=== PATIENT | female | born 1930 | race Caucasian/White ===

== ENCOUNTER 2018-08-18 15:46 | Inpatient (IN) | payer MEDICARE, OTHER ==
[~2018-08-18] VITALS: Ht 154.9 cm; Wt 57.3 kg
[2018-08-18] MEDS ORDERED: ASPIRIN 325 MG TAB PO STA (15:53)
[2018-08-18] MEDS ORDERED: ACET325T45 PO (16:51)
[2018-08-18] MEDS ORDERED: INSU100I12 SQ (16:54)
[2018-08-18] MEDS ORDERED: ALBU2.5V3 NEB (16:55)
[2018-08-18] MEDS ORDERED: ASPI-817 PO (16:56)
[2018-08-18] MEDS ORDERED: ASC500 PO (16:56)
[2018-08-18] MEDS ORDERED: [UNRECOGNIZED DRUG - CODE] PO (16:58)
[2018-08-18] MEDS ORDERED: FLUT1AER INHALATION (16:59)
[2018-08-18] MEDS ORDERED: DOCU-144 PO (16:59)
[2018-08-18] MEDS ORDERED: CARV6.25 PO (17:00)
[2018-08-18] MEDS ORDERED: BISA10SU55 RC (17:01)
[2018-08-18] MEDS ORDERED: NA P133E39 RC (17:02)
[2018-08-18] MEDS ORDERED: MELA3TAB17 PO (17:03)
[2018-08-18] MEDS ORDERED: LANT3I SC (17:03)
[2018-08-18] MEDS ORDERED: MAGN400O19 PO (17:04)
[2018-08-18] MEDS ORDERED: MULT-105 PO (17:05)
[2018-08-18] MEDS ORDERED: PANT40TA4 PO (17:05)
[2018-08-18] MEDS ORDERED: SENN-120 PO (17:06)
[2018-08-18] MEDS ORDERED: AMIN30LI PO (17:06)
[2018-08-18] MEDS ORDERED: ARIP10TA12 PO (17:07)
[2018-08-18] MEDS ORDERED: ZINC220T PO (17:07)
[2018-08-18] MEDS ORDERED: LORA-441 PO (17:08)
[2018-08-18] MEDS ORDERED: SIMV10TA PO (17:09)
[2018-08-18] MEDS ORDERED: MIRT30TA PO (17:09)
[2018-08-18] MEDS ORDERED: MAGN400T28 PO (17:10)
[2018-08-18] MEDS ORDERED: CALC1TAB93 PO (17:10)
[2018-08-18] MEDS ORDERED: CHOL100062 PO (17:11)
[2018-08-18] MEDS ORDERED: VANCOMYCIN 1 GM (PMX) 250 ML IVPB STA (17:29)
[2018-08-18] MEDS ORDERED: CEFEPIME 1GM/50 ML (PMX) 50 ML IVPB STA (17:29)
--- NOTE | 2018-08-18 17:46 | HP ---
Date/Time of Note Date/Time of Note DATE: 08/18/18 TIME: 17:46 Assessment/Plan VTE Prophylaxis SCD applied (from Nsg): Yes Pharmacological prophylaxis: LMWH Lines/Catheters IV Catheter Type (from Nrsg): Saline Lock Assessment/Plan Assessment/Plan 1. Large left sided pleural effusion - seen on CXR - will order thoracentesis with fluid studies - will consult Pulmonology for further recommendations - patient has thora performed at [facility] on 08/11/18 with 600cc removed - may be secondary to CHF and patient does not appear to be on any diuretics as outpatient 2. Acute on chronic congestive heart failure - ECHO ordered to assess EF - will start on Lasix IV BID and adjust as needed - BNP noted - monitor I/O and daily weights 3. Acute chest pain - most likely secondary to #1 - will trend trops - nitro and O2 PRN - ECHO ordered - EKG negative for acute ST changes 4. ? Infiltrate on CXR - will start broad spectrum antibiotics and reassess after fluid removal - Nebs PRN 5. Diabetes Mellitus - continue Lantus and ISS - check A1c 6. Alzheimers dementia - continue home medications 7. Left forehead mass - follow as outpatient 8. COPD - continue home bronchodilators - PRN nebs 9. HTN - continue home medications and adjust as needed 10. Schizophrenia - continue home medications 11. Diet - mechanical soft 12. Disposition - Admit to telemetry for treatment of acute on chronic CHF and thoracentesis for L pleural effusion Result Diagram: 08/18/18 1602 08/18/18 1602 Results 24hrs Laboratory Tests Test 08/18/18 16:02 White Blood Count 12.5 H Red Blood Count 3.85 L Hemoglobin 11.5 L Hematocrit 34.9 L Mean Corpuscular Volume 90.6 Mean Corpuscular Hemoglobin 29.9 Mean Corpuscular Hemoglobin Concent 33.0 Red Cell Distribution Width 13.6 Platelet Count 303 Mean Platelet Volume 10.0 Immature Granulocytes % 0.500 H Neutrophils % 78.5 H Lymphocytes % 11.7 L Monocytes % 8.5 Eosinophils % 0.6 Basophils % 0.2 Nucleated Red Blood Cells % 0.0 Immature Granulocytes # 0.060 H Neutrophils # 9.8 H Lymphocytes # 1.5 Monocytes # 1.1 H Eosinophils # 0.1 Basophils # 0.0 Nucleated Red Blood Cells # 0.0 Prothrombin Time 13.8 Prothrombin Time Ratio 1.1 INR International Normalized Ratio 1.05 Activated Partial Thromboplast Time 30.4 Sodium Level 141 Potassium Level 4.2 Chloride Level 102 Carbon Dioxide Level 31 Anion Gap 8 Blood Urea Nitrogen 17 Creatinine 0.67 Est Glomerular Filtrat Rate mL/min Glucose Level 214 Calcium Level 9.2 Total Bilirubin 0.4 Direct Bilirubin 0.00 Indirect Bilirubin 0.4 Aspartate Amino Transf (AST/SGOT) 15 Alanine Aminotransferase (ALT/SGPT) 7 L Alkaline Phosphatase 54 Creatine Kinase 28 Creatine Kinase Index 3.2 Creatinine Kinase MB (Mass) 0.90 Troponin I 0.024 B-Type Natriuretic Peptide 976 H Total Protein 7.2 Albumin 3.4 Globulin 3.80 H Albumin/Globulin Ratio 0.89 HPI/ROS Admit Date/Time Admit Date/Time 08/18/18 Hx of Present Illness 88 yo F with PMH pleural effusion, congestive heart failure, HTN, Alzheimers dementia, COPD, Depression, diabetes mellitus, and left forehead mass presented to ED from SNF for acute chest pain after awaking from nap today and shortness of breath. Patient is [place]i speaking but not communicating well. History obtained from ED physician as well as recent records from [facility] admission. In ED, patient was noted with large right pleural effusion on CXR and placed on O2 due to hypoxia. Per records, patient is known to [facility] and was recently admitting 08/11/18 for generalized weakness and found with large right sided pleural effusion. She had a thoracentesis performed with 600cc removed and fluid studies were negative for malignancy. She was discharged back to SNF in good condition. Patient is unable to verbalize needs at this time. ROS All 12 systems reviewed and pertinent positives as per HPI. All others negative. Unable to obtain ROS due to dementia Subjective hx not possible: other (dementia) PMH/Family/Social Past Medical History Medical History: congestive heart failure, diabetes, high cholesterol, hypertension, other (COPD, schizophrenia, depression, dementia, left forehead mass) Medications Current Medications Cefepime HCl 50 ml @ 100 mls/hr ONCE STAT IVPB Last administered on 08/18/18at 17:42; Admin Dose 100 MLS/HR; Start 08/18/18 at 17:29; Stop 08/18/18 at 17:58 Vancomycin HCl 250 ml @ 125 mls/hr ONCE STAT IVPB ; Start 08/18/18 at 17:29; Stop 08/18/18 at 19:28 Acetaminophen (Tylenol Tab) 650 mg Q6H PRN PO MILD PAIN LEVEL 1-3; Start 08/18/18 at 18:00; Status UNV Aripiprazole (Abilify) 10 mg QHS PO ; Start 08/18/18 at 21:00; Status UNV Ascorbic Acid (Vitamin C) 500 mg BID PO ; Start 08/18/18 at 21:00; Status UNV Aspirin (Halfprin) 81 mg DAILY PO ; Start 08/19/18 at 09:00; Status UNV Calcium/Vitamin D (Oyster Shell/ Vit-D (500/200)) 1 tab DAILY PO ; Start 08/19/18 at 09:00; Status UNV Carvedilol (Coreg) 6.25 mg BID PO ; Start 08/18/18 at 21:00; Status UNV Cholecalciferol (Vitamin D) 1,000 unit BID PO ; Start 08/18/18 at 21:00; Status UNV Fluticasone/ Vilanterol (Breo Ellipta 100-25 Mcg Inh) 1 inh DAILY INH ; Start 08/19/18 at 09:00; Status UNV Insulin Glargine (Lantus) 10 units QHS PRN SC HOLD IF BS<100MG/DL; Start 08/18/18 at 18:00; Status UNV Magnesium Hydroxide (Milk Of Mag) 30 ml DAILY PRN PO constipation; Start 08/18/18 at 18:00; Status UNV Mirtazapine (Remeron) 30 mg HS PO ; Start 08/18/18 at 21:00; Status UNV Pantoprazole (Protonix Tab) 40 mg AC BREAKFAST PO ; Start 08/19/18 at 07:00; Status UNV Zinc Sulfate (Zinc Sulfate) 220 mg DAILY PO ; Start 08/19/18 at 09:00; Status UNV Miscellaneous Information 1 each DAILY PO ; Start 08/19/18 at 09:00; Status UNV Miscellaneous Information 10 mg QHS PO ; Start 08/18/18 at 21:00; Status UNV IV Flush (NS 3 ml) 3 ml PER PROTOCOL IV ; Start 08/18/18 at 18:00; Status UNV Ondansetron HCl (Zofran Inj) 4 mg Q6H PRN IV NAUSEA/VOMITING; Start 08/18/18 at 18:00; Status UNV Acetaminophen (Tylenol Tab) 650 mg Q6H PRN PO .PAIN 1-3 OR TEMP; Start 08/18/18 at 18:00; Status UNV Docusate Sodium (Colace) 100 mg Q12H PRN PO .CONSTIPATION; Start 08/18/18 at 18:00; Status UNV Bisacodyl (Dulcolax) 5 mg DAILY PRN PO .CONSTIPATION; Start 08/18/18 at 18:00; Status UNV Cefepime HCl 50 ml @ 100 mls/hr Q8 IV ; Start 08/18/18 at 22:00; Status UNV Furosemide (Lasix) 20 mg BID DIURETICS IV ; Start 08/18/18 at 18:00; Status UNV Coded Allergies: levofloxacin (Verified Allergy, Unknown, 08/18/18) Past Surgical History Past Surgical Hx: noncontributory Family History Significant Family History: other (noncontributory) Social History Alcohol Use: none Smoking Status: Former smoker Drug Use: none Exam/Review of Systems Vital Signs Vitals Vital Signs Date Temp Pulse Resp B/P (MAP) Pulse Ox O2 O2 Flow FiO2 Time Delivery Rate 08/18/18 99.8 71 14 123/65 93 Nasal 2.0 17:11 (84) Cannula Exam Exam General: Patient is laying in bed, no acute distress. HEENT: Normocephalic, large left sided mass on forehead with no discharge or drainage. The pupils are equal, round and reactive. EOM intact, Neck: Supple with full range of motion. No rigidity or meningismus Chest: nontender Lungs: Left sided breath sounds absent. Diminished on right. no wheezing appreciated Heart: Normal S1-S2, Regular rhythm and rate. systolic murmur appreciated Abdomen: Soft , nontender, nondistended , bowel sounds are present. No guarding no rebound tenderness , No masses or organomegaly. No costovertebral temporal angle mass Extremities: Normal to inspection, trace lower extremity edema, no cyanosis or clubbing Skin: no rashes appreciated. large left sided mass on forehead Additional Comments Home medications reviewed PROCEDURE: XR Chest, 1 View CLINICAL INDICATION: Chest pain. TECHNIQUE: Frontal view of the chest. COMPARISON: None FINDINGS: LUNGS: Nonspecific increased density in the remaining aerated portion of the upper left lung. This may be secondary to atelectasis versus infiltrate. The right lung is clear. PLEURAL SPACE: Large left pleural effusion. No pneumothorax. HEART: Mild cardiomegaly. MEDIASTINUM: Unremarkable. BONES/JOINTS: Mild degenerative thoracic spine changes. VASCULATURE: Atherosclerotic calcifications in the thoracic aorta. IMPRESSION: 1. Large left pleural effusion. 2. Nonspecific increased density in the remaining aerated portion of the upper left lung. This may be secondary to atelectasis versus infiltrate. 3. The right lung is clear. RPTAT: [facility] Sofy Lewis Physician Vice President Education Date Time Electronically viewed and signed by Sofy Lewis Physician Vice President Education on 08/18/2018 16:45 YADIRA COLLINS MD Aug 18, 2018 17:46
[2018-08-18] MEDS ORDERED: GLUCOSE GEL 15 GRAM TUBE BUCCAL PRN (18:00)
[2018-08-18] MEDS ORDERED: NACL 0.9% 3 ML SYG IV SCH (18:00)
[2018-08-18] MEDS ORDERED: DOCUSATE SODIUM 100 MG CAP PO PRN (18:00)
[2018-08-18] MEDS: INSULIN ASPART [NOVOLOG] 3 ML PEN SC SCH ×2 (18:00→21:00)
[2018-08-18] MEDS ORDERED: ONDANSETRON 4 MG INJ IV PRN ×2 (18:00→18:30)
[2018-08-18] MEDS ORDERED: GLUCOSE GEL 15 GRAM TUBE PO PRN ×2 (18:00)
[2018-08-18] MEDS ORDERED: ACETAMINOPHEN 325 MG TAB PO PRN ×3 (18:00→18:30)
[2018-08-18] MEDS ORDERED: BISACODYL (EC) 5 MG TAB PO PRN (18:00)
[2018-08-18] MEDS ORDERED: DEXTROSE 50% 50 ML SYRINGE IV PRN ×2 (18:00)
[2018-08-18] MEDS ORDERED: GLUCAGON 1 MG INJ IM PRN (18:00)
[2018-08-18] MEDS ORDERED: MAGNESIUM HYDROXIDE 30ML CUP PO PRN (18:00)
[2018-08-18] MEDS: FUROSEMIDE 20 MG INJ IV SCH (18:14)
--- NOTE | 2018-08-18 18:44 | ERD ---
ER Documentation Chief Complaint Chief Complaint CHEST PRESSURE X TODAY HPI Is an 88-year-old female with a history of congestive heart failure diabetes mellitus and dementia. The patient presented to the emergency department from h nursing care facility at [facility]. Patient was transferred by ambulance as she awoke from a nap complaining of chest pressure. The patient stated the pain was on the left side of her chest. She stated did not radiate anywhere. Her primary language is Burkinan. EMS administered nitroglycerin with no changes in her symptoms. There is been no recent hospitalizations. When rev iewing previous medical records the patient has not been in [facility] however she presented with papers from [facility] where she had been admitted on August 06, 2018. The patient had a large left pleural effusion and had a thoracentesis that was performed. The dementia is due to Alzheimer's. There is a report of schizophrenia and underlying COPD she had extensive tobacco history. ROS All systems reviewed and are negative except as per history of present illness. Medications Home Meds Reported Medications Cholecalciferol* (Vitamin D3*) 1,000 Unit Tablet, 1000 UNIT PO BID, TAB 08/18/18 Calcium Carbonate/Vitamin D3 (OYSTER SHELL 500 MG + VIT D TB) 1 Each Tablet, 1 EACH PO DAILY, TAB 08/18/18 Magnesium Oxide* (Magnesium Oxide*) 400 Mg Tablet, 400 MG PO BID, TAB 08/18/18 Simvastatin* (Zocor*) 10 Mg Tablet, 10 MG PO QHS, #30 TAB 08/18/18 Mirtazapine* (Remeron*) 30 Mg Tablet, 30 MG PO HS, TAB 08/18/18 Lorazepam* (Ativan*) 0.5 Mg Tablet, 0.5 MG PO BID PRN for ANXIETY, #30 TAB 08/18/18 Aripiprazole* (Abilify*) 10 Mg Tablet, 10 MG PO QHS, #30 TAB 08/18/18 Zinc Sulfate* (Zinc Sulfate*) 220 Mg Tablet, 220 MG PO DAILY, TAB 08/18/18 Sennosides* (Senna Lax*) 8.6 Mg Tablet, 1 TAB PO DAILY, TAB 08/18/18 Amino Acids/Protein Hydrolys (PRO-STAT LIQUID) 30 Ml Liquid.pkt, 30 ML PO TID SUGAR FREE 08/18/18 Pantoprazole* (Pantoprazole*) 40 Mg Tablet.dr, 40 MG PO AC BREAKFAST, TAB 08/18/18 Multivitamin with Minerals (Multivitamins with Minerals) 1 Each Tablet, 1 EACH PO DAILY, TAB 08/18/18 Magnesium Hydroxide* (Milk Of Magnesia*) 400 Mg/5 Ml Oral.susp, 30 ML PO NEEDED, ML 08/18/18 Melatonin (Melatonin) 3 Mg Tablet.sa, 3 MG PO HS, TAB.SA 08/18/18 Insulin Glargine* (Lantus*) 100 Unit/Ml Soln, 10 UNIT SC QHS PRN for HOLD IF BS<100MG/DL, #1 VIAL 08/18/18 Sodium Phosphate,Kleberg-Dibasic (Enema Ready To Use) Unknown Strength Enema, 118 ML RC NEEDED, ENEMA 08/18/18 Bisacodyl (Dulcolax) 10 Mg Supp.rect, 10 MG RC NEEDED, SUPP.RECT 08/18/18 Carvedilol* (Coreg*) 6.25 Mg Tablet, 6.25 MG PO BID, #60 TAB HOLD FOR SBP<110 OR TX<60 08/18/18 Docusate Sodium* (Colace*) 100 Mg Capsule, 100 MG PO BID, #60 CAP 08/18/18 Fluticasone-Vilanterol (Breo Ellipta Inhaler) 100-25 Mcg/Actuation Aer.pow.ba, 1 PUFF INHALATION DAILY, #1 INHALER 08/18/18 Nut.tx.gluc Intol,Lf,Soy/Fiber (Boost Glucose Control Liquid) 237 Ml Liquid, PO QID 08/18/18 Aspirin* (Aspirin* EC) 81 Mg Tablet.dr, 81 MG PO DAILY, TAB 08/18/18 Ascorbic Acid (Vitamin C) 500 Mg Tab, 500 MG PO BID, TAB 08/18/18 Albuterol Sulfate* (Albuterol Sulfate* Neb) 0.083%-3 Ml Neb, 2.5 MG NEB Q6H PRN for WHEEZING AND SOB, #30 VIAL 08/18/18 Insulin Lispro (Humalog Kwikpen U-100) 100 Unit/1 Ml Insuln.pen, 0 SQ SLIDING SCALE, EA IF BS LESS THAN 70 CALL MD. IF BS 70-150=0 UNIT, 151-200=2 UNITS,201-250=4 UNITS, 251-300=6 UNITS, 301-350=8 UNITS,351-400=10 UNITS, IF BS>400=12 UNITS AND CALL MD. 08/18/18 Acetaminophen* (Acetaminophen*) 325 Mg Tablet, 650 MG PO Q6H PRN for MILD PAIN LEVEL 1-3, #30 TAB 08/18/18 Allergies Allergies: Coded Allergies: levofloxacin (Verified Allergy, Unknown, 08/18/18) PMhx/Soc History of Surgery: No Anesthesia Reaction: No Hx Neurological Disorder: Yes (DEMENTIA) Hx Respiratory Disorders: No Hx Psychiatric Problems: No Hx Miscellaneous Medical Probl: No Hx Alcohol Use: No Hx Substance Use: No Hx Tobacco Use: No Smoking Status: Former smoker Physical Exam Vitals Vital Signs Date Temp Pulse Resp B/P (MAP) Pulse Ox O2 O2 Flow FiO2 Time Delivery Rate 08/18/18 99.8 67 14 127/61 93 Nasal 2.0 18:08 (83) Cannula 08/18/18 99.8 71 14 123/65 93 Nasal 2.0 17:11 (84) Cannula 08/18/18 99.8 90 20 133/66 93 Nasal 2.0 15:58 (88) Cannula 08/18/18 Nasal 2 15:58 Cannula 08/18/18 99.8 88 20 133/66 93 15:49 (88) Physical Exam Constitutional:Well-developed. HEENT:Normocephalic. Atraumatic.Pupils were equal round reactive to light. Moist mucous membranes.No tonsillar exudates. Nodule growth on the left forehead measuring 2 cm in diameter by 2 cm raised. No surrounding tenderness. Neck: No nuchal rigidity. No lymphadenopathy. No posterior cervical spine tenderness or step-offs. Respiratory: Tachypneic. Decreased breath sounds heard in the left hemothorax. Cardiovascular: Regular rate regular rhythm.No murmurs. No rubs were appreciated.S1, S2 normal. Distal pulses are palpable 2+ bilaterally. GI: Abdomen was soft. Nontender. Non Distended. No pulsatile abdominal masses or bruits. No rebound. No guarding. Bowel sounds were present and normal. Muscle skeletal: Full range of motion of both the upper and lower extremities bilaterally.Normal muscle tone.No assymetrical calf tenderness or swelling. Skin: No petechia, no purpura. No lesions on the palms or the soles of the feet. No maculopapular rash. NEURO: Patient follows simple verbal command. 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 Gait not observed. Result Diagram: 08/18/18 1602 08/18/18 1602 Results 24 hrs Laboratory Tests Test 08/18/18 16:02 White Blood Count 12.5 10^3/ul Red Blood Count 3.85 10^6/ul Hemoglobin 11.5 g/dl Hematocrit 34.9 % Mean Corpuscular Volume 90.6 fl Mean Corpuscular Hemoglobin 29.9 pg Mean Corpuscular Hemoglobin Concent 33.0 g/dl Red Cell Distribution Width 13.6 % Platelet Count 303 10^3/UL Mean Platelet Volume 10.0 fl Immature Granulocytes % 0.500 % Neutrophils % 78.5 % Lymphocytes % 11.7 % Monocytes % 8.5 % Eosinophils % 0.6 % Basophils % 0.2 % Nucleated Red Blood Cells % 0.0 /100WBC Immature Granulocytes # 0.060 10^3/ul Neutrophils # 9.8 10^3/ul Lymphocytes # 1.5 10^3/ul Monocytes # 1.1 10^3/ul Eosinophils # 0.1 10^3/ul Basophils # 0.0 10^3/ul Nucleated Red Blood Cells # 0.0 10^3/ul Prothrombin Time 13.8 Sec Prothrombin Time Ratio 1.1 INR International Normalized Ratio 1.05 Activated Partial Thromboplast Time 30.4 Sec Sodium Level 141 mmol/L Potassium Level 4.2 mmol/L Chloride Level 102 mmol/L Carbon Dioxide Level 31 mmol/L Anion Gap 8 Blood Urea Nitrogen 17 mg/dl Creatinine 0.67 mg/dl Est Glomerular Filtrat Rate mL/min mL/min Glucose Level 214 mg/dl Hemoglobin A1c 7.4 % Calcium Level 9.2 mg/dl Total Bilirubin 0.4 mg/dl Direct Bilirubin 0.00 mg/dl Indirect Bilirubin 0.4 mg/dl Aspartate Amino Transf (AST/SGOT) 15 IU/L Alanine Aminotransferase (ALT/SGPT) 7 IU/L Alkaline Phosphatase 54 IU/L Creatine Kinase 28 IU/L Creatine Kinase Index 3.2 Creatinine Kinase MB (Mass) 0.90 ng/ml Troponin I 0.024 ng/ml B-Type Natriuretic Peptide 976 PG/ML Total Protein 7.2 g/dl Albumin 3.4 g/dl Globulin 3.80 g/dl Albumin/Globulin Ratio 0.89 Current Medications Medications Dose Sig/Poppy Start Time Status Last (Trade) Ordered Route PRN Stop Time Admin Dose Reason Admin Aspirin 325 mg ONCE STAT 08/18/18 DC 08/18/18 (Aspirin) PO 15:53 16:10 08/18/18 15:55 Cefepime HCl 50 ml @ ONCE STAT 08/18/18 DC 08/18/18 100 mls/hr IVPB 17:29 17:42 08/18/18 17:58 Vancomycin 250 ml @ ONCE STAT 08/18/18 08/18/18 HCl 125 mls/hr IVPB 17:29 18:12 08/18/18 19:28 650 mg Q6H PRN 08/18/18 DC Acetaminophen PO MILD PAIN 18:00 (Tylenol LEVEL 1-3 08/18/18 18:00 Tab) 10 mg QHS PO 08/18/18 Aripiprazole 21:00 (Abilify) Ascorbic 500 mg BID PO 08/18/18 Acid 21:00 (Vitamin C) Aspirin 81 mg DAILY PO 08/19/18 (Halfprin) 09:00 1 tab DAILY PO 08/19/18 Calcium/Vitam 09:00 in D (Oyster Shell/ Vit-D (500/200)) Carvedilol 6.25 mg BID PO 08/18/18 (Coreg) 21:00 1,000 unit BID PO 08/18/18 Cholecalcifer 21:00 ol (Vitamin D) 1 inh DAILY INH 08/19/18 Fluticasone/ 09:00 Vilanterol (Breo Ellipta 100-25 Mcg Inh) Insulin 10 units QHS SC 08/18/18 Glargine 21:00 (Lantus) Magnesium 30 ml DAILY PRN 08/18/18 Hydroxide PO 18:00 (Milk Of Mag) constipation Mirtazapine 30 mg HS PO 08/18/18 (Remeron) 21:00 40 mg AC 08/19/18 Pantoprazole BREAKFAST 07:00 (Protonix PO Tab) Zinc 220 mg DAILY PO 08/19/18 Sulfate 09:00 (Zinc Sulfate) 1 each DAILY PO 08/19/18 DC Miscellaneous 09:00 Information 08/19/18 09:00 10 mg QHS PO 08/18/18 DC Miscellaneous 21:00 Information 08/18/18 21:00 IV Flush 3 ml PER 08/18/18 (NS 3 ml) PROTOCOL IV 18:00 Ondansetron 4 mg Q6H PRN 08/18/18 HCl (Zofran IV 18:00 Inj) NAUSEA/VOMITI NG 650 mg Q6H PRN 08/18/18 Acetaminophen PO .PAIN 1-3 18:00 (Tylenol OR TEMP Tab) Docusate 100 mg Q12H PRN 08/18/18 Sodium PO 18:00 (Colace) .CONSTIPATION Bisacodyl 5 mg DAILY PRN 08/18/18 (Dulcolax) PO 18:00 .CONSTIPATION Cefepime HCl 50 ml @ Q24H IV 08/19/18 100 mls/hr 12:00 Furosemide 20 mg BID 08/18/18 08/18/18 (Lasix) DIURETICS 18:00 18:14 IV 1 ea NOTE XX 08/18/18 Miscellaneous 18:00 Information Glucose 15 gm Q15M PRN 08/18/18 (Glutose) PO DECREASED 18:00 GLUCOSE Glucose 22.5 gm Q15M PRN 08/18/18 (Glutose) PO DECREASED 18:00 GLUCOSE Dextrose 25 ml Q15M PRN 08/18/18 (D50w IV DECREASED 18:00 Syringe) GLUCOSE Dextrose 50 ml Q15M PRN 08/18/18 (D50w IV DECREASED 18:00 Syringe) GLUCOSE Glucagon 1 mg Q15M PRN 08/18/18 (Glucagen) IM DECREASED 18:00 GLUCOSE Glucose 15 gm Q15M PRN 08/18/18 (Glutose) BUCCAL 18:00 DECREASED GLUCOSE 1 tab DAILY PO 08/19/18 Multivitamins 09:00 Therapeutic (Theragran) 10 mg DAILY@21 08/18/18 Atorvastatin PO 21:00 Calcium (Lipitor) Discontinue ONCE ONCE 08/18/18 DC Miscellaneous current oral XX 18:00 sulfonylur... 08/18/18 18:10 Information (* Miscellaneous Pharmacy Order) ONCE ONCE 08/18/18 DC Miscellaneous HYPOGLYCEMIA XX 18:00 PROTOCOL 08/18/18 18:11 Information w... (* Miscellaneous Pharmacy Order) Insulin NOVOLOG WITH MEALS 08/18/18 Aspart *MILD* BEDTIME SC 18:00 (Novolog ALGORITHM Insulin Pen) Discontinue ONCE ONCE 08/18/18 DC Miscellaneous all previ... XX 18:00 08/18/18 18:10 Information (* Miscellaneous Pharmacy Order) Ondansetron 4 mg ER BRIDGE 08/18/18 HCl (Zofran PRN IV 18:30 Inj) NAUSEA/VOMITI 08/19/18 18:29 NG 650 mg ER BRIDGE 08/18/18 Acetaminophen PRN PO 18:30 (Tylenol .MILD PAIN 08/19/18 18:29 Tab) 1-3 OR TEMP Procedures/MDM The patient presented to the emergency department with chest pain. My clinical evaluation and workup was to distinguish minor causes of chest pain from acute life threatening conditions such as myocardial infarction, pulmonary embolism, aortic dissection, esophageal rupture, cardiac tamponade. The patient was placed on a monitoring manager and continuous pulse oximetry. IV access established by nursing staff. The patient received aspirin. 12 Lead EKG tracing ordered and reviewed by myself showed: Normal sinus rhythm of 82 bpm and no arrhythmia. TX interval normal. QRS duration normal. No ST segment elevation No ST segment depression. No changes consistent with acute ischemia. Patient's troponin was within normal limits. The patient is a very poor historian and I did not feel the pain was experiencing a myocardial infarction. The patient was hypoxic and therefore I obtained a chest radiograph. Chest radiograph reviewed by myself the radiologist showed a large left pleural effusion. The patient had a recent thoracentesis at [facility]. However given her symptoms of mild respiratory distress with hypoxia she will be admitted to the hospitalist Dr. Pizarro to undergo a repeat thoracentesis if required to treat her pleural effusion. She required supplemental oxygen of 4 L nasal cannula. I did obtain blood cultures as could not rule out an underlying infectious process. The patient did receive antibiotics to treat suspected healthcare acquired pneumonia. The patient also has underlying congestive heart failure. Lasix was not given as the patient reported on hypotension. Critical Care: Time: 35 minutes Treatments/Evaluations: Close monitoring and treatment of unstable vital signs, cardiorespiratory, and neurologic status, while maintaining tight balance of fluid, respiratory, and cardiac interventions. Time does not include performing any of the above billable procedures. Departure Diagnosis: Primary Impression: Chest pain Chest pain type: unspecified Qualified Codes: R07.9 - Chest pain, unspecified Additional Impression: Pleural effusion due to CHF (congestive heart failure) Condition: Fair CAROLINE,UDAY MD Aug 18, 2018 18:44
[2018-08-18] MEDS ORDERED: NON-FORMULARY/PATIENT OWN MED (Simvastatin* (Zocor*) 10 MG) PO SCH (21:00)
[2018-08-18 21:13] VITALS: BP 145/77; PULSE 67; RESP 21
[2018-08-18] MEDS: ATORVASTATIN 10 MG TAB PO SCH (21:52)
[2018-08-18] MEDS: ASCORBIC ACID 500 MG TAB PO SCH (21:52)
[2018-08-18] MEDS: CHOLECALCIFEROL 1,000 UNIT TAB PO SCH (21:52)
[2018-08-18] MEDS: MIRTAZAPINE 15 MG TAB PO SCH (21:52)
[2018-08-18 22:00] VITALS: Ht 154.9 cm; Wt 57.3 kg
[2018-08-18] MEDS: ARIPIPRAZOLE 10 MG TAB PO SCH (22:08)
[2018-08-18] MEDS: INSULIN GLARGINE [LANTus] (100 UNITS/ML) SYG SC SCH (23:09)
[2018-08-18 23:28] VITALS: BP 139/66; PULSE 71; RESP 18
[2018-08-19] VITALS (7 sets, daily range): BP systolic 104–182; BP diastolic 56–92; PULSE 63–71; RESP 15–21
[2018-08-19] MEDS: PANTOPRAZOLE (EC) 40 MG TAB PO SCH (06:07)
[2018-08-19] MEDS: FUROSEMIDE 20 MG INJ IV SCH ×2 (06:08→18:16)
[2018-08-19] MEDS: INSULIN ASPART [NOVOLOG] 3 ML PEN SC SCH ×4 (07:59→20:47)
[2018-08-19] MEDS ORDERED: hydrALAzine 20 MG INJ IV PRN (09:00)
[2018-08-19] MEDS: MULTIVITAMINS THERAPEUTIC TAB PO SCH (09:13)
[2018-08-19] MEDS: CHOLECALCIFEROL 1,000 UNIT TAB PO SCH ×2 (09:13→20:28)
[2018-08-19] MEDS: ASCORBIC ACID 500 MG TAB PO SCH ×2 (09:13→20:28)
[2018-08-19] MEDS: CALCIUM/VITAMIN D (500/200) TAB PO SCH (09:13)
[2018-08-19] MEDS: ASPIRIN (EC) 81 MG TAB PO SCH (09:13)
[2018-08-19] MEDS: ZINC SULFATE 220 MG CAP PO SCH (09:13)
[2018-08-19] MEDS: FLUTICASONE/VILANTEROL 100-25 INH SCH (09:13)
--- NOTE | 2018-08-19 09:59 | PN ---
Date/Time of Note Date/Time of Note DATE: 08/19/18 TIME: 09:55 Assessment/Plan VTE Prophylaxis Risk score (from Nsg)>0 risk: 6 SCD applied (from Nsg): Yes Pharmacological prophylaxis: LMWH Lines/Catheters IV Catheter Type (from Nrsg): Saline Lock Urinary Cath still in place: No Assessment/Plan Assessment/Plan 1. Large left sided pleural effusion - will need thoracentesis when able to reach family for consent - seen on CXR - Pulmonology consultation placed - patient has thora performed at [facility] on 08/11/18 with 600cc removed - may be secondary to CHF and patient does not appear to be on any diuretics as outpatient 2. Acute on chronic congestive heart failure - ECHO ordered to assess EF - will start on Lasix IV BID and adjust as needed - BNP noted - monitor I/O and daily weights 3. Acute chest pain - most likely secondary to #1 - serial trops negative - nitro and O2 PRN - EKG negative for acute ST changes 4. ? Infiltrate on CXR - will start broad spectrum antibiotics and reassess after fluid removal - Nebs PRN 5. Diabetes Mellitus - continue Lantus and ISS - A1c noted 6. Alzheimers dementia - continue home medications 7. Left forehead mass - follow as outpatient 8. COPD - continue home bronchodilators - PRN nebs 9. HTN - continue home medications and adjust as needed 10. Schizophrenia - continue home medications 11. Diet - mechanical soft 12. Disposition - Pulmonology consultation placed and awaiting thoracentesis. Result Diagram: 08/19/18 0523 08/19/18 0524 Results 24hrs Laboratory Tests Test 08/18/18 16:02 08/18/18 21:57 08/19/18 00:22 08/19/18 05:23 White Blood Count 12.5 H 10.6 Red Blood Count 3.85 L 3.75 L Hemoglobin 11.5 L 11.1 L Hematocrit 34.9 L 34.4 L Mean Corpuscular 90.6 91.7 Volume Mean Corpuscular 29.9 29.6 Hemoglobin Mean Corpuscular 33.0 32.3 Hemoglobin Concent Red Cell 13.6 13.8 Distribution Width Platelet Count 303 290 Mean Platelet Volume 10.0 10.3 Immature 0.500 H 0.400 Granulocytes % Neutrophils % 78.5 H 74.2 Lymphocytes % 11.7 L 15.8 Monocytes % 8.5 8.1 Eosinophils % 0.6 1.3 Basophils % 0.2 0.2 Nucleated Red Blood 0.0 0.0 Cells % Immature 0.060 H 0.040 H Granulocytes # Neutrophils # 9.8 H 7.9 H Lymphocytes # 1.5 1.7 Monocytes # 1.1 H 0.9 Eosinophils # 0.1 0.1 Basophils # 0.0 0.0 Nucleated Red Blood 0.0 0.0 Cells # Prothrombin Time 13.8 Prothrombin Time 1.1 Ratio INR International 1.05 Normalized Ratio Activated 30.4 Partial Thromboplast Time Sodium Level 141 Potassium Level 4.2 Chloride Level 102 Carbon Dioxide Level 31 Anion Gap 8 Blood Urea Nitrogen 17 Creatinine 0.67 Est Glomerular Filtrat Rate mL/min Glucose Level 214 Hemoglobin A1c 7.4 H Calcium Level 9.2 Total Bilirubin 0.4 Direct Bilirubin 0.00 Indirect Bilirubin 0.4 Aspartate Amino 15 Transf (AST/SGOT) Alanine 7 L Aminotransferase (AL T/SGPT) Alkaline Phosphatase 54 Creatine Kinase 28 28 23 Creatine Kinase 3.2 3.1 5.0 Index Creatinine Kinase MB 0.90 0.87 1.14 (Mass) Troponin I 0.024 0.032 0.031 B-Type Natriuretic 976 H Peptide Total Protein 7.2 Albumin 3.4 Globulin 3.80 H Albumin/Globulin 0.89 Ratio Bedside Glucose 159 Test 08/19/18 05:24 08/19/18 07:53 Sodium Level 141 Potassium Level 3.9 Chloride Level 102 Carbon Dioxide Level 33 H Anion Gap 6 Blood Urea Nitrogen 19 Creatinine 0.68 Est Glomerular Filtrat Rate mL/min Glucose Level 151 Calcium Level 9.3 Magnesium Level 1.7 Bedside Glucose 216 Subjective 24 Hr Interval Summary Free Text/Dictation Patient resting comfortably and in no acute distress. No acute overnight events. Exam/Review of Systems Exam Vitals Vital Signs Date Temp Pulse Resp B/P (MAP) Pulse Ox O2 O2 Flow FiO2 Time Delivery Rate 08/19/18 71 16 182/77 07:18 (112) 08/19/18 98.3 97 03:39 08/19/18 2.0 01:42 08/18/18 Nasal 22:00 Cannula Intake and Output 08/18/18 08/18/18 08/19/18 1515:00 23:00 07:00 IntakeIntake Total 50 ml BalanceBalance 50 ml Exam General: Patient is laying in bed, no acute distress. HEENT: Normocephalic, large left sided mass on forehead with no discharge or drainage Neck: Supple Chest: nontender Lungs: Left sided breath sounds absent. Diminished on right. no wheezing appreciated Heart: Normal S1-S2, Regular rhythm and rate. systolic murmur appreciated Abdomen: Soft , nontender, nondistended , bowel sounds are present. No guarding no rebound tenderness Extremities: Normal to inspection, trace lower extremity edema, no cyanosis or clubbing Skin: no rashes appreciated. large left sided mass on forehead Results Results 24hrs Laboratory Tests Test 08/18/18 16:02 08/18/18 21:57 08/19/18 00:22 08/19/18 05:23 White Blood Count 12.5 H 10.6 Red Blood Count 3.85 L 3.75 L Hemoglobin 11.5 L 11.1 L Hematocrit 34.9 L 34.4 L Mean Corpuscular 90.6 91.7 Volume Mean Corpuscular 29.9 29.6 Hemoglobin Mean Corpuscular 33.0 32.3 Hemoglobin Concent Red Cell 13.6 13.8 Distribution Width Platelet Count 303 290 Mean Platelet Volume 10.0 10.3 Immature 0.500 H 0.400 Granulocytes % Neutrophils % 78.5 H 74.2 Lymphocytes % 11.7 L 15.8 Monocytes % 8.5 8.1 Eosinophils % 0.6 1.3 Basophils % 0.2 0.2 Nucleated Red Blood 0.0 0.0 Cells % Immature 0.060 H 0.040 H Granulocytes # Neutrophils # 9.8 H 7.9 H Lymphocytes # 1.5 1.7 Monocytes # 1.1 H 0.9 Eosinophils # 0.1 0.1 Basophils # 0.0 0.0 Nucleated Red Blood 0.0 0.0 Cells # Prothrombin Time 13.8 Prothrombin Time 1.1 Ratio INR International 1.05 Normalized Ratio Activated 30.4 Partial Thromboplast Time Sodium Level 141 Potassium Level 4.2 Chloride Level 102 Carbon Dioxide Level 31 Anion Gap 8 Blood Urea Nitrogen 17 Creatinine 0.67 Est Glomerular Filtrat Rate mL/min Glucose Level 214 Hemoglobin A1c 7.4 H Calcium Level 9.2 Total Bilirubin 0.4 Direct Bilirubin 0.00 Indirect Bilirubin 0.4 Aspartate Amino 15 Transf (AST/SGOT) Alanine 7 L Aminotransferase (AL T/SGPT) Alkaline Phosphatase 54 Creatine Kinase 28 28 23 Creatine Kinase 3.2 3.1 5.0 Index Creatinine Kinase MB 0.90 0.87 1.14 (Mass) Troponin I 0.024 0.032 0.031 B-Type Natriuretic 976 H Peptide Total Protein 7.2 Albumin 3.4 Globulin 3.80 H Albumin/Globulin 0.89 Ratio Bedside Glucose 159 Test 08/19/18 05:24 08/19/18 07:53 Sodium Level 141 Potassium Level 3.9 Chloride Level 102 Carbon Dioxide Level 33 H Anion Gap 6 Blood Urea Nitrogen 19 Creatinine 0.68 Est Glomerular Filtrat Rate mL/min Glucose Level 151 Calcium Level 9.3 Magnesium Level 1.7 Bedside Glucose 216 Medications Medication Current Medications Aripiprazole (Abilify) 10 mg QHS PO Last administered on 08/18/18 22:08; Admin Dose 10 MG; Start 08/18/18 at 21:00 Ascorbic Acid (Vitamin C) 500 mg BID PO Last administered on 08/19/18 09:13; Admin Dose 500 MG; Start 08/18/18 at 21:00 Aspirin (Halfprin) 81 mg DAILY PO Last administered on 08/19/18 09:13; Admin Dose 81 MG; Start 08/19/18 at 09:00 Calcium/Vitamin D (Oyster Shell/ Vit-D (500/200)) 1 tab DAILY PO Last administ ered on 08/19/18 09:13; Admin Dose 1 TAB; Start 08/19/18 at 09:00 Carvedilol (Coreg) 6.25 mg BID PO Last administered on 08/19/18 09:14; Admin Dose 6.25 MG; Start 08/18/18 at 21:00 Cholecalciferol (Vitamin D) 1,000 unit BID PO Last administered on 08/19/18 09:13; Admin Dose 1,000 UNIT; Start 08/18/18 at 21:00 Fluticasone/ Vilanterol (Breo Ellipta 100-25 Mcg Inh) 1 inh DAILY INH Last administered on 08/19/18 09:13; Admin Dose 1 INH; Start 08/19/18 at 09:00 Insulin Glargine (Lantus) 10 units QHS SC Last administered on 7/11/19at 23:09; Admin Dose 10 UNITS; Start 08/18/18 at 21:00 Magnesium Hydroxide (Milk Of Mag) 30 ml DAILY PRN PO constipation; Start 08/18/18 at 18:00 Mirtazapine (Remeron) 30 mg HS PO Last administered on 08/18/18at 21:52; Admin Dose 30 MG; Start 08/18/18 at 21:00 Pantoprazole (Protonix Tab) 40 mg AC BREAKFAST PO Last administered on 08/19/18at 06:07; Admin Dose 40 MG; Start 08/19/18 at 07:00 Zinc Sulfate (Zinc Sulfate) 220 mg DAILY PO Last administered on 08/19/18at 09:13; Admin Dose 220 MG; Start 08/19/18 at 09:00 IV Flush (NS 3 ml) 3 ml PER PROTOCOL IV ; Start 08/18/18 at 18:00 Ondansetron HCl (Zofran Inj) 4 mg Q6H PRN IV NAUSEA/VOMITING; Start 08/18/18 at 18:00 Acetaminophen (Tylenol Tab) 650 mg Q6H PRN PO .PAIN 1-3 OR TEMP; Start 08/18/18 at 18:00 Docusate Sodium (Colace) 100 mg Q12H PRN PO .CONSTIPATION; Start 08/18/18 at 18:00 Bisacodyl (Dulcolax) 5 mg DAILY PRN PO .CONSTIPATION; Start 08/18/18 at 18:00 Cefepime HCl 50 ml @ 100 mls/hr Q24H IV ; Start 08/19/18 at 12:00 Furosemide (Lasix) 20 mg BID DIURETICS IV Last administered on 08/19/18at 06:08; Admin Dose 20 MG; Start 08/18/18 at 18:00 Miscellaneous Information 1 ea NOTE XX ; Start 08/18/18 at 18:00 Glucose (Glutose) 15 gm Q15M PRN PO DECREASED GLUCOSE; Start 08/18/18 at 18:00 Glucose (Glutose) 22.5 gm Q15M PRN PO DECREASED GLUCOSE; Start 08/18/18 at 18:00 Dextrose (D50w Syringe) 25 ml Q15M PRN IV DECREASED GLUCOSE; Start 08/18/18 at 18:00 Dextrose (D50w Syringe) 50 ml Q15M PRN IV DECREASED GLUCOSE; Start 08/18/18 at 18:00 Glucagon (Glucagen) 1 mg Q15M PRN IM DECREASED GLUCOSE; Start 08/18/18 at 18:00 Glucose (Glutose) 15 gm Q15M PRN BUCCAL DECREASED GLUCOSE; Start 08/18/18 at 18:00 Multivitamins Therapeutic (Theragran) 1 tab DAILY PO Last administered on at 09:13; Admin Dose 1 TAB; Start 08/19/18 at 09:00 Atorvastatin Calcium (Lipitor) 10 mg DAILY@21 PO Last administered on 08/18/18at 21:52; Admin Dose 10 MG; Start 08/18/18 at 21:00 Insulin Aspart (Novolog Insulin Pen) NOVOLOG *MILD* ALGORITHM WITH MEALS BEDTIME SC Last administered on 08/19/18at 07:59; Admin Dose 2 UNIT; Start 08/18/18 at 18:00 Ondansetron HCl (Zofran Inj) 4 mg ER BRIDGE PRN IV NAUSEA/VOMITING; Start 08/18/18 at 18:30; Stop 08/19/18 at 18:29 Acetaminophen (Tylenol Tab) 650 mg ER BRIDGE PRN PO .MILD PAIN 1-3 OR TEMP; Start 08/18/18 at 18:30; Stop 08/19/18 at 18:29 Magnesium Sulfate 50 ml @ 25 mls/hr ONCE ONCE IVPB ; Start 08/19/18 at 10:00; Stop 08/19/18 at 11:59 Hydralazine HCl (Apresoline) 10 mg Q4H PRN IV SBP >170; Start 08/19/18 at 09:00 YADIRA COLLINS MD Aug 19, 2018 09:59
[2018-08-19] MEDS ORDERED: MAGNESIUM SULFATE 2 GM/50 ML 50 ML IVPB ONE (10:00)
[2018-08-19] MEDS: CEFEPIME 2GM/50 ML (PMX) 50 ML IV SCH (12:32)
--- NOTE | 2018-08-19 14:59 | RADRPT ---
Echocardiogram Report Patient Name: Candy SCHULTEnt ID: [id number] : 1930 (88y 4m)Study Date: 08/19/2018 11:04:19 AM Gender: FAccession #: [id number] Tech: SN Location: [facility] Ref.Physician: YADIRA COLLINS Height(Cm): BSA: Weight(Kg): Quality: AdequateOrder Physician: YADIRA COLLINS Account #: Procedures: Echocardiographic Report: Transthoracic echocardiogram with complete 2D, M-Mode, and doppler examination. Indications: Evaluate Left Ventricular function, pleural effusion. Measurements: 2D/M Mode Doppler Measurement Value Normal Range Measurement Value Normal Range LVIDd 2D 3.0 [ 3.8 - 5.2 ] cm SONIYA VTI 0.8 [ 2.0 - 4.0 ] cm2 LVIDs 2D 2.2 [ 2.2 - 3.5 ] cm AV Mean Slim 2.3 [ 70.0 - 90.0 ] cm/sec LVPWd 2D 1.0 [ 0.6 - 0.9 ] cm AV Mean PG 25.0 [ 2.0 - 4.0 ] mmHg IVSd 2D 1.4 [ 0.6 - 0.9 ] cm AV VTI 78.0 cm AoR Diam 2D 2.3 [ 2.3 - 3.1 ] cm LVOT Mean Slim 0.6 [ 60.0 - 80.0 ] cm/sec EDV 2D 35.3 [ 46.0 - 106.0 ] ml LVOT Mean PG 2.0 [ 1.0 - 3.0 ] mmHg ESV 2D 16.0 [ 14.0 - 42.0 ] ml LVOT Peak Slim 1.0 [ 70.0 - 110.0 ] cm/sec EF 2D 54.7 [ 54.0 - 74.0 ] percent LVOT Peak PG 4.0 [ 2.0 - 6.0 ] mmHg LA Dimen 2D 2.7 [ 2.7 - 3.8 ] cm LVOT VTI 21.9 [ 20.0 - 30.0 ] cm LVOT Diam 1.9 [ 2.1 - 2.5 ] cm MV E Peak Slim 1.1 [ 60.0 - 130.0 ] cm/sec MV A Peak Slim 0.8 [ 100.0 - 120.0 ] cm/sec MV E/A 1.4 [ 0.8 - 1.5 ] ratio MV Peak Slim 1.3 [ 60.0 - 130.0 ] cm/sec MV Peak PG 7.0 [ 1.0 - 10.0 ] mmHg MV Mean Slim 0.8 cm/sec MV Mean PG 3.0 mmHg MV Decel Time 250 [ 104 - 258 ] msec Lat E` Slim 0.1 [ 10.0 - 15.0 ] cm/sec Lateral E/E` 16.4 [ 1.0 - 2.0 ] ratio MV E/A 1.4 [ 0.8 - 1.5 ] ratio MV VTI 35.1 cm MVA VTI 1.8 cm TR Peak Slim 3.6 [ 100.0 - 280.0 ] cm/sec TR Peak PG 51.0 mmHg RVSP 54.0 [ 10.0 - 36.0 ] mmHg Findings: Left Ventricle: Normal left ventricular systolic function. Normal left ventricular cavity size. Moderate asymmetric septal hypertrophy. Moderate left ventricular hypertrophy. Ejection fraction is visually estimated at 60 %. Tissue Doppler/Mitral Doppler indices are consistent with pseudonormalization with mildly elevated left atrial pressure (Stage II diastolic dysfunction). Right Ventricle: Normal right ventricular size. Normal right ventricular systolic function. Left Atrium: The left atrium is normal in size. Right Atrium: The right atrium is normal in size. Mitral Valve: Mild mitral leaflet calcification. Moderate mitral annular calcification. Mild mitral valve regurgitation. Aortic Valve: Moderate aortic stenosis. Aortic cusps appear severely calcified. Trace aortic valve regurgitation. Tricuspid Valve: Normal appearance of the tricuspid valve. The estimated Peak RVSP is 54 mmHg. There is mild tricuspid regurgitation. Pericardium: Small pericardial effusion. No echocardiographic evidence to suggest pericardial tamponade. Left pleural effusion seen. Aorta: Normal aortic root. IVC: Normal size and normal respiratory collapse consistent with normal right atrial pressure. Conclusions: Normal left ventricular systolic function. Normal left ventricular cavity size. Moderate asymmetric septal hypertrophy. Moderate left ventricular hypertrophy. Ejection fraction is visually estimated at 60 %. Tissue Doppler/Mitral Doppler indices are consistent with pseudonormalization with mildly elevated left atrial pressure (Stage II diastolic dysfunction). Normal right ventricular size. Normal right ventricular systolic function. The left atrium is normal in size. The right atrium is normal in size. Mild mitral valve regurgitation. Moderate aortic stenosis. Trace aortic valve regurgitation. The estimated Peak RVSP is 54 mmHg. There is mild tricuspid regurgitation. Pericardial effusion, likely small in size, difficult to fully confirm secondary to large left peural effusion. No echocardiographic evidence to suggest pericardial tamponade. Further imaging if clicinally warranted. Electronically Signed By: Ky Carson 2018-08-19 14:59:09 PDT
[2018-08-19] MEDS ORDERED: LIDOCAINE 1% (MPF) 5 ML VIAL ONE (15:01)
[2018-08-19] MEDS: MIRTAZAPINE 15 MG TAB PO SCH (20:28)
[2018-08-19] MEDS: ATORVASTATIN 10 MG TAB PO SCH (20:28)
[2018-08-19] MEDS: ARIPIPRAZOLE 10 MG TAB PO SCH (20:28)
[2018-08-19] MEDS: INSULIN GLARGINE [LANTus] (100 UNITS/ML) SYG SC SCH (20:47)
[2018-08-19] MEDS ORDERED: ACCU-CHEK XX ONE (21:00)
[2018-08-19] MEDS ORDERED: INSULIN ASPART [NOVOLOG] 3 ML PEN SC ONE (21:00)
--- NOTE | 2018-08-19 21:23 | CONS ---
DATE OF ADMISSION: 08/18/2018 DATE OF CONSULTATION: 08/19/2018 TYPE OF CONSULTATION: Pulmonary. REASON FOR CONSULTATION: Shortness of breath. Thank you, Dr. Pizarro, for this consultation. HISTORY OF PRESENT ILLNESS: This is an 88-year-old lady with multiple medical problems, who comes in with several-day history of increasing shortness of breath, orthopnea, PND, found to have large left pleural effusion, recently underwent thoracentesis at [facility]. The patient is mostly curren tly nonverbal, unable to give me further details. PAST MEDICAL HISTORY: Alzheimer's dementia, COPD, recurrent pleural effusion. MEDICATIONS: Per chart. ALLERGIES: NONE. SOCIAL HISTORY: Nonsmoker, no alcohol, no history of drug use. FAMILY HISTORY: Noncontributory. SYSTEMS REVIEW: A 12-point review of systems was negative other than mentioned above. PHYSICAL EXAMINATION: GENERAL: Chronically ill-appearing lady, appears comfortable at rest, no acute distress. VITAL SIGNS: Currently afebrile, pulse is 63, blood pressure 152/65, O2 saturation 92% on 2 liters. NECK: Supple. No JVD or lymphadenopathy. CARDIAC: S1, S2, no added sounds or murmurs. CHEST: Diminished air entry bilaterally. ABDOMEN: Soft, nontender. No guarding or rebound. LABORATORY: White count 10.6, hemoglobin 11, platelets of 290, BUN 19, creatinine 0.68. INR is 1.05 . DIAGNOSTIC DATA: Chest x-ray showed moderate left pleural effusion and compressive atelectasis. IMPRESSION AND PLAN: 1. Recurrent left pleural effusion, possible aspiration component. Will require repeat thoracentesi s. 2. Patient may benefit from a respiratory care Herrera post-thoracentesis, also. Dictated By: ALOK GONZALES MD SV/NTS Conf#: [id number] DID#: [id number] CC: YADIRA PIZARRO MD;*End*
[2018-08-20 03:35] VITALS: BP 137/63; PULSE 71; RESP 20
[2018-08-20] MEDS: FUROSEMIDE 20 MG INJ IV SCH ×2 (06:07→17:55)
[2018-08-20] MEDS: PANTOPRAZOLE (EC) 40 MG TAB PO SCH (06:07)
[2018-08-20 07:58] VITALS: BP 130/58; PULSE 63; RESP 18
[2018-08-20] MEDS: INSULIN ASPART [NOVOLOG] 3 ML PEN SC SCH ×4 (08:00→21:00)
[2018-08-20] MEDS: ASPIRIN (EC) 81 MG TAB PO SCH (08:36)
[2018-08-20] MEDS: FLUTICASONE/VILANTEROL 100-25 INH SCH (08:36)
[2018-08-20] MEDS: MULTIVITAMINS THERAPEUTIC TAB PO SCH (08:37)
[2018-08-20] MEDS: ASCORBIC ACID 500 MG TAB PO SCH ×2 (08:37→21:29)
[2018-08-20] MEDS: CHOLECALCIFEROL 1,000 UNIT TAB PO SCH ×2 (08:37→21:29)
[2018-08-20] MEDS: ZINC SULFATE 220 MG CAP PO SCH (08:37)
[2018-08-20] MEDS: CALCIUM/VITAMIN D (500/200) TAB PO SCH (08:37)
--- NOTE | 2018-08-20 11:20 | PN ---
Date/Time of Note Date/Time of Note DATE: 08/20/18 TIME: 11:10 Assessment/Plan VTE Prophylaxis Risk score (from Nsg)>0 risk: 4 SCD applied (from Nsg): Yes Pharmacological prophylaxis: LMWH Lines/Catheters IV Catheter Type (from Nrsg): Saline Lock Urinary Cath still in place: No Assessment/Plan Assessment/Plan 1. Large left sided pleural effusion s/p thoracentesis - 900 cc removed on 08/19 - low O2 this am and repeat CXR pending - Pulm on board and appreciate consultation. believes patient would benefit from Herrera given has had recurrent pleural effusions and may need another thoracentesis - seen on CXR - patient has thora performed at [facility] on 08/11/18 with 600cc removed 2. Acute on chronic congestive heart failure - ECHO results noted. small pericardial effusion but no tamponade appreciated - continue on current diuretics and monitor I/O - BNP noted 3. Acute chest pain - ACS ruled out - most likely secondary to #1 - serial trops negative - nitro and O2 PRN - EKG negative for acute ST changes 4. Diabetes Mellitus - continue Lantus and ISS - A1c noted 5. Alzheimers dementia - continue home medications 6. Left forehead mass - follow as outpatient 7. COPD - continue home bronchodilators - PRN nebs 8. HTN - continue home medications and adjust as needed 9. Schizophrenia - continue home medications 10. Disposition - Repeat CXR pending and CM consulted for Herrera evaluation - continue diuresis and monitoring I/O Result Diagram: 08/20/18 0537 08/20/18 0538 Results 24hrs Laboratory Tests Test 08/19/18 11:53 08/19/18 14:50 08/20/18 00:01 08/20/18 05:37 Bedside Glucose 67 L 139 Body Fluid Type PLEURAL Body Fluid Volume 900.0 Body Fluid Color YELLOW Body Fluid SLIGHTLY CLOUDY Appearance Body Fluid WBC 210 Body Fluid RBC 0 (Auto) Body Fluid 3.8 Polynuclear WBCs (%) Body Fluid 96.2 Mononuclear Cells % Auto Body Fluid Glucose 140 Body Fluid Total 5.0 Protein Body Fluid 332 Lactate Dehydrogen ase White Blood Count 11.2 H Red Blood Count 4.06 L Hemoglobin 12.1 Hematocrit 37.3 Mean Corpuscular 91.9 Volume Mean Corpuscular 29.8 Hemoglobin Mean Corpuscular 32.4 Hemoglobin Concent Red Cell 13.6 Distribution Width Platelet Count 322 Mean Platelet 10.2 Volume Immature 0.400 Granulocytes % Neutrophils % 69.8 Lymphocytes % 18.6 Monocytes % 8.9 Eosinophils % 2.0 Basophils % 0.3 Nucleated Red 0.0 Blood Cells % Immature 0.050 H Granulocytes # Neutrophils # 7.8 H Lymphocytes # 2.1 Monocytes # 1.0 H Eosinophils # 0.2 Basophils # 0.0 Nucleated Red 0.0 Blood Cells # Test 08/20/18 05:38 08/20/18 08:33 Sodium Level 145 H Potassium Level 4.2 Chloride Level 101 Carbon Dioxide 36 H Level Anion Gap 8 Blood Urea 24 H Nitrogen Creatinine 0.96 Glucose Level 105 # Calcium Level 9.7 Phosphorus Level 4.2 Magnesium Level 2.3 Albumin 3.4 Bedside Glucose 94 Subjective 24 Hr Interval Summary Free Text/Dictation Patient is resting comfortably in no acute distress. No acute overnight events. Exam/Review of Systems Exam Vitals Vital Signs Date Temp Pulse Resp B/P (MAP) Pulse Ox O2 O2 Flow FiO2 Time Delivery Rate 08/20/18 97.9 63 18 130/58 91 Room Air 07:58 (82) 08/19/18 2.0 20:58 Intake and Output 08/19/18 08/19/18 08/20/18 1515:00 23:00 07:00 IntakeIntake Total 120 ml OutputOutput Total 1 ml BalanceBalance 120 ml -1 ml Exam General: Patient is laying in bed, no acute distress. HEENT: Normocephalic, large left sided mass on forehead with no discharge or drainage Lungs: clear bilaterally, diminished at bases. no wheezing appreciated Heart: Normal S1-S2, Regular rhythm and rate. systolic murmur appreciated Abdomen: Soft , nontender, nondistended , bowel sounds are present. No guarding no rebound tenderness Extremities: Normal to inspection, trace lower extremity edema, no cyanosis or clubbing Skin: no rashes appreciated. large left sided mass on forehead Results Results 24hrs Laboratory Tests Test 08/19/18 11:53 08/19/18 14:50 08/20/18 00:01 08/20/18 05:37 Bedside Glucose 67 L 139 Body Fluid Type PLEURAL Body Fluid Volume 900.0 Body Fluid Color YELLOW Body Fluid SLIGHTLY CLOUDY Appearance Body Fluid WBC 210 Body Fluid RBC 0 (Auto) Body Fluid 3.8 Polynuclear WBCs (%) Body Fluid 96.2 Mononuclear Cells % Auto Body Fluid Glucose 140 Body Fluid Total 5.0 Protein Body Fluid 332 Lactate Dehydrogen ase White Blood Count 11.2 H Red Blood Count 4.06 L Hemoglobin 12.1 Hematocrit 37.3 Mean Corpuscular 91.9 Volume Mean Corpuscular 29.8 Hemoglobin Mean Corpuscular 32.4 Hemoglobin Concent Red Cell 13.6 Distribution Width Platelet Count 322 Mean Platelet 10.2 Volume Immature 0.400 Granulocytes % Neutrophils % 69.8 Lymphocytes % 18.6 Monocytes % 8.9 Eosinophils % 2.0 Basophils % 0.3 Nucleated Red 0.0 Blood Cells % Immature 0.050 H Granulocytes # Neutrophils # 7.8 H Lymphocytes # 2.1 Monocytes # 1.0 H Eosinophils # 0.2 Basophils # 0.0 Nucleated Red 0.0 Blood Cells # Test 08/20/18 05:38 08/20/18 08:33 Sodium Level 145 H Potassium Level 4.2 Chloride Level 101 Carbon Dioxide 36 H Level Anion Gap 8 Blood Urea 24 H Nitrogen Creatinine 0.96 Glucose Level 105 # Calcium Level 9.7 Phosphorus Level 4.2 Magnesium Level 2.3 Albumin 3.4 Bedside Glucose 94 Medications Medication Current Medications Aripiprazole (Abilify) 10 mg QHS PO Last administered on 08/19/18 20:28; Admin Dose 10 MG; Start 08/18/18 at 21:00 Ascorbic Acid (Vitamin C) 500 mg BID PO Last administered on 08/20/18 08:37; Admin Dose 500 MG; Start 08/18/18 at 21:00 Aspirin (Halfprin) 81 mg DAILY PO Last administered on 08/20/18 08:36; Admin Dose 81 MG; Start 08/19/18 at 09:00 Calcium/Vitamin D (Oyster Shell/ Vit-D (500/200)) 1 tab DAILY PO Last administered on 08/20/18 08:37; Admin Dose 1 TAB; Start 08/19/18 at 09:00 Carvedilol (Coreg) 6.25 mg BID PO Last administered on 08/20/18 08:37; Admin Dose 6.25 MG; Start 08/18/18 at 21:00 Cholecalciferol (Vitamin D) 1,000 unit BID PO Last administered on 08/20/18 08:37; Admin Dose 1,000 UNIT; Start 08/18/18 at 21:00 Fluticasone/ Vilanterol (Breo Ellipta 100-25 Mcg Inh) 1 inh DAILY INH Last administered on 08/20/18 08:36; Admin Dose 1 INH; Start 08/19/18 at 09:00 Insulin Glargine (Lantus) 10 units QHS SC Last administered on 08/19/18 20:47; Admin Dose 10 UNITS; Start 08/18/18 at 21:00 Magnesium Hydroxide (Milk Of Mag) 30 ml DAILY PRN PO constipation; Start 08/18/18 at 18:00 Mirtazapine (Remeron) 30 mg HS PO Last administered on 08/19/18 20:28; Admin Dose 30 MG; Start 08/18/18 at 21:00 Pantoprazole (Protonix Tab) 40 mg AC BREAKFAST PO Last administered on 08/20/18 06:07; Admin Dose 40 MG; Start 08/19/18 at 07:00 Zinc Sulfate (Zinc Sulfate) 220 mg DAILY PO Last administered on 08/20/18 08:37; Admin Dose 220 MG; Start 08/19/18 at 09:00 IV Flush (NS 3 ml) 3 ml PER PROTOCOL IV ; Start 08/18/18 at 18:00 Ondansetron HCl (Zofran Inj) 4 mg Q6H PRN IV NAUSEA/VOMITING; Start 08/18/18 at 18:00 Acetaminophen (Tylenol Tab) 650 mg Q6H PRN PO .PAIN 1-3 OR TEMP; Start 08/18/18 at 18:00 Docusate Sodium (Colace) 100 mg Q12H PRN PO .CONSTIPATION; Start 08/18/18 at 18:00 Bisacodyl (Dulcolax) 5 mg DAILY PRN PO .CONSTIPATION; Start 08/18/18 at 18:00 Cefepime HCl 50 ml @ 100 mls/hr Q24H IV Last administered on 08/19/18 12:32; Admin Dose 100 MLS/HR; Start 08/19/18 at 12:00 Furosemide (Lasix) 20 mg BID DIURETICS IV Last administered on 08/20/18 06:07; Admin Dose 20 MG; Start 08/18/18 at 18:00 Miscellaneous Information 1 ea NOTE XX ; Start 08/18/18 at 18:00 Glucose (Glutose) 15 gm Q15M PRN PO DECREASED GLUCOSE; Start 08/18/18 at 18:00 Glucose (Glutose) 22.5 gm Q15M PRN PO DECREASED GLUCOSE; Start 08/18/18 at 18:00 Dextrose (D50w Syringe) 25 ml Q15M PRN IV DECREASED GLUCOSE; Start 08/18/18 at 18:00 Dextrose (D50w Syringe) 50 ml Q15M PRN IV DECREASED GLUCOSE; Start 08/18/18 at 18:00 Glucagon (Glucagen) 1 mg Q15M PRN IM DECREASED GLUCOSE; Start 08/18/18 at 18:00 Glucose (Glutose) 15 gm Q15M PRN BUCCAL DECREASED GLUCOSE; Start 08/18/18 at 18:00 Multivitamins Therapeutic (Theragran) 1 tab DAILY PO Last administered on 08/20/18at 08:37; Admin Dose 1 TAB; Start 08/19/18 at 09:00 Atorvastatin Calcium (Lipitor) 10 mg DAILY@21 PO Last administered on 08/19/18at 20:28; Admin Dose 10 MG; Start 08/18/18 at 21:00 Insulin Aspart (Novolog Insulin Pen) NOVOLOG *MILD* ALGORITHM WITH MEALS B EDTIME SC Last administered on 08/19/18at 20:47; Admin Dose 4 UNIT; Start 08/18/18 at 18:00 Hydralazine HCl (Apresoline) 10 mg Q4H PRN IV SBP >170; Start 08/19/18 at 09:00 YADIRA COLLINS MD Aug 20, 2018 11:20
[2018-08-20 11:27] VITALS: BP 101/54; PULSE 62; RESP 20
[2018-08-20] MEDS: CEFEPIME 2GM/50 ML (PMX) 50 ML IV SCH ×2 (12:00→14:24)
--- NOTE | 2018-08-20 14:27 | PN ---
DATE: 08/20/2018 SUBJECTIVE: Chart reviewed. Events noted. The patient is status post left thoracentesis with 700 m L fluid removal. Currently on room air saturating 95%. PHYSICAL EXAMINATION: VITAL SIGNS: Blood pressure 101/54, pulse 62, respirations 20, temperature 97. HEENT: Pupils are equal and react to light. NECK: Supple, no JVD noted, no cervical adenopathy noted. LUNGS: Decreased breath sounds at the left base. CARDIOVASCULAR: S1, S2 normal. ABDOMEN: Soft, nontender, no megaly or masses noted. EXTREMITIES: No clubbing or cyanosis noted. NEUROLOGIC: No changes. LABORATORY DATA: WBC 11.2, hemoglobin 12.1, hematocrit 37.3, platelets 322. Sodium 145, potassium 4 .2, chloride 101, CO2 of 36, BUN 24, creatinine 0.96, glucose 105. IMPRESSION: 1. Recurrent left pleural effusion, status post thoracentesis. 2. Chronic obstructive pulmonary disease. 3. Alzheimer dementia. 4. Acute on chronic left ventricular systolic failure. 5. Diabetes mellitus. 6. Hypertension. 7. History of schizophrenia. RECOMMENDATIONS: 1. Continue current treatment. 2. Monitor x-ray. 3. Herrera evaluation. 4. Followup on pleural fluid studies. Dictated By: SHIRA SPANGLER MD, MA/BO Conf#: [id number] DID#: [id number] CC: YADIRA COLLINS MD;*EndCC*
[2018-08-20 15:40] VITALS: BP 143/63; PULSE 66; RESP 20
[2018-08-20 19:50] VITALS: BP 100/51; PULSE 78; RESP 20
[2018-08-20] MEDS: ARIPIPRAZOLE 10 MG TAB PO SCH (21:29)
[2018-08-20] MEDS: MIRTAZAPINE 15 MG TAB PO SCH (21:29)
[2018-08-20] MEDS: ATORVASTATIN 10 MG TAB PO SCH (21:29)
[2018-08-20] MEDS: INSULIN GLARGINE [LANTus] (100 UNITS/ML) SYG SC SCH (21:47)
[2018-08-20 23:49] VITALS: BP 95/55; PULSE 69; RESP 20
[2018-08-21 04:00] VITALS: BP 140/60; PULSE 76; RESP 20
[2018-08-21] MEDS: FUROSEMIDE 20 MG INJ IV SCH ×2 (06:15→17:31)
[2018-08-21] MEDS: PANTOPRAZOLE (EC) 40 MG TAB PO SCH (06:15)
[2018-08-21] MEDS: INSULIN ASPART [NOVOLOG] 3 ML PEN SC SCH ×4 (08:00→21:49)
[2018-08-21 08:20] VITALS: BP 120/52; PULSE 63; RESP 18
[2018-08-21] MEDS: FLUTICASONE/VILANTEROL 100-25 INH SCH (08:23)
[2018-08-21] MEDS: MULTIVITAMINS THERAPEUTIC TAB PO SCH (08:24)
[2018-08-21] MEDS: ASPIRIN (EC) 81 MG TAB PO SCH (08:24)
[2018-08-21] MEDS: ZINC SULFATE 220 MG CAP PO SCH (08:24)
[2018-08-21] MEDS: CHOLECALCIFEROL 1,000 UNIT TAB PO SCH ×2 (08:24→21:22)
[2018-08-21] MEDS: ASCORBIC ACID 500 MG TAB PO SCH ×2 (08:24→21:23)
[2018-08-21] MEDS: CALCIUM/VITAMIN D (500/200) TAB PO SCH (08:24)
--- NOTE | 2018-08-21 10:33 | PN ---
Date/Time of Note Date/Time of Note DATE: 08/21/18 TIME: 10:30 Assessment/Plan VTE Prophylaxis Risk score (from Nsg)>0 risk: 6 SCD applied (from Nsg): Yes Pharmacological prophylaxis: LMWH Lines/Catheters IV Catheter Type (from Nrsg): Saline Lock Urinary Cath still in place: No Assessment/Plan Assessment/Plan 1. Large left sided pleural effusion s/p thoracentesis - 900 cc removed on 08/19 - repeat CXR showing large left sided pneumonia - Pulm on board and appreciate consultation. believes patient would benefit from Herrera given has had recurrent pleural effusions and may need another thoracentesis - seen on CXR - patient has thora performed at [facility] on 08/11/18 with 600cc removed 2. Acute on chronic congestive heart failure - ECHO results noted. small pericardial effusion but no tamponade appreciated - continue on current diuretics and monitor I/O - BNP noted 3. Acute chest pain - ACS ruled out - most likely secondary to #1 - serial trops negative - nitro and O2 PRN - EKG negative for acute ST changes 4. Diabetes Mellitus - continue Lantus and ISS - A1c noted 5. Alzheimers dementia - continue home medications 6. Left forehead mass - follow as outpatient 7. COPD - continue home bronchodilators - PRN nebs 8. HTN - continue home medications and adjust as needed 9. Schizophrenia - continue home medications 10. Disposition - Pending Herrera evaluation given frequent thoracentesis and large left sided pneumonia seen on CXR. Awaiting fluid cx results Result Diagram: 08/21/18 0549 08/21/18 0549 Results 24hrs Laboratory Tests Test 08/20/18 12:22 08/20/18 21:27 08/21/18 05:49 08/21/18 08:15 Bedside Glucose 100 140 123 White Blood Count 11.0 H Red Blood Count 3.67 L Hemoglobin 11.0 L Hematocrit 34.2 L Mean Corpuscular 93.2 Volume Mean Corpuscular 30.0 Hemoglobin Mean Corpuscular 32.2 Hemoglobin Concent Red Cell 13.4 Distribution Width Platelet Count 310 Mean Platelet Volume 10.5 H Immature 0.500 H Granulocytes % Neutrophils % 77.0 Lymphocytes % 15.2 Monocytes % 6.1 Eosinophils % 0.9 Basophils % 0.3 Nucleated Red Blood 0.0 Cells % Immature 0.050 H Granulocytes # Neutrophils # 8.5 H Lymphocytes # 1.7 Monocytes # 0.7 Eosinophils # 0.1 Basophils # 0.0 Nucleated Red Blood 0.0 Cells # Sodium Level 139 Potassium Level 4.0 Chloride Level 97 Carbon Dioxide Level 35 H Anion Gap 7 Blood Urea Nitrogen 29 H Creatinine 1.09 H Glucose Level 163 Calcium Level 9.4 Phosphorus Level 5.2 H Magnesium Level 1.9 Albumin 3.2 L Subjective 24 Hr Interval Summary Free Text/Dictation Patient more agitated this am and refusing most of her medications and breakfast. Exam/Review of Systems Exam Vitals Vital Signs Date Temp Pulse Resp B/P (MAP) Pulse Ox O2 O2 Flow FiO2 Time Delivery Rate 08/21/18 97.5 63 18 120/52 95 Room Air 08:20 (74) 08/21/18 2.0 08:20 Intake and Output 08/20/18 08/20/18 08/21/18 1515:00 23:00 07:00 IntakeIntake Total 270 ml 100 ml 200 ml BalanceBalance 270 ml 100 ml 200 ml Exam General: Patient is agitated and pushing me away this am HEENT:large left sided mass on forehead with no discharge or drainage Lungs: clear bilaterally, diminished at bases. no wheezing appreciated Heart: Normal S1-S2, Regular rhythm and rate. systolic murmur appreciated Abdomen: Soft , nontender, nondistended , bowel sounds are present. No guarding no rebound tenderness Skin: no rashes appreciated. large left sided mass on forehead Results Results 24hrs Laboratory Tests Test 08/20/18 12:22 08/20/18 21:27 08/21/18 05:49 08/21/18 08:15 Bedside Glucose 100 140 123 White Blood Count 11.0 H Red Blood Count 3.67 L Hemoglobin 11.0 L Hematocrit 34.2 L Mean Corpuscular 93.2 Volume Mean Corpuscular 30.0 Hemoglobin Mean Corpuscular 32.2 Hemoglobin Concent Red Cell 13.4 Distribution Width Platelet Count 310 Mean Platelet Volume 10.5 H Immature 0.500 H Granulocytes % Neutrophils % 77.0 Lymphocytes % 15.2 Monocytes % 6.1 Eosinophils % 0.9 Basophils % 0.3 Nucleated Red Blood 0.0 Cells % Immature 0.050 H Granulocytes # Neutrophils # 8.5 H Lymphocytes # 1.7 Monocytes # 0.7 Eosinophils # 0.1 Basophils # 0.0 Nucleated Red Blood 0.0 Cells # Sodium Level 139 Potassium Level 4.0 Chloride Level 97 Carbon Dioxide Level 35 H Anion Gap 7 Blood Urea Nitrogen 29 H Creatinine 1.09 H Glucose Level 163 Calcium Level 9.4 Phosphorus Level 5.2 H Magnesium Level 1.9 Albumin 3.2 L Medications Medication Current Medications Aripiprazole (Abilify) 10 mg QHS PO Last administered on 08/20/18 21:29; Admin Dose 10 MG; Start 08/18/18 at 21:00 Ascorbic Acid (Vitamin C) 500 mg BID PO Last administered on 08/21/18 08:24; Admin Dose 500 MG; Start 08/18/18 at 21:00 Aspirin (Halfprin) 81 mg DAILY PO Last administered on 08/21/18 08:24; Admin Dose 81 MG; Start 08/19/18 at 09:00 Calcium/Vitamin D (Oyster Shell/ Vit-D (500/200)) 1 tab DAILY PO Last administered on 08/21/18 08:24; Admin Dose 1 TAB; Start 08/19/18 at 09:00 Carvedilol (Coreg) 6.25 mg BID PO Last administered on 08/21/18 08:24; Admin Dose 6.25 MG; Start 08/18/18 at 21:00 Cholecalciferol (Vitamin D) 1,000 unit BID PO Last administered on 08/21/18 08:24; Admin Dose 1,000 UNIT; Start 08/18/18 at 21:00 Fluticasone/ Vilanterol (Breo Ellipta 100-25 Mcg Inh) 1 inh DAILY INH Last administered on 08/21/18 08:23; Admin Dose 1 INH; Start 08/19/18 at 09:00 Insulin Glargine (Lantus) 10 units QHS SC Last administered on 08/20/18 21:47; Admin Dose 10 UNITS; Start 08/18/18 at 21:00 Magnesium Hydroxide (Milk Of Mag) 30 ml DAILY PRN PO constipation; Start 08/18/18 at 18:00 Mirtazapine (Remeron) 30 mg HS PO Last administered on 08/20/18 21:29; Admin Dose 30 MG; Start 08/18/18 at 21:00 Pantoprazole (Protonix Tab) 40 mg AC BREAKFAST PO Last administered on 08/21/18at 06:15; Admin Dose 40 MG; Start 08/19/18 at 07:00 Zinc Sulfate (Zinc Sulfate) 220 mg DAILY PO Last administered on 08/21/18at 08:24; Admin Dose 220 MG; Start 08/19/18 at 09:00 IV Flush (NS 3 ml) 3 ml PER PROTOCOL IV ; Start 08/18/18 at 18:00 Ondansetron HCl (Zofran Inj) 4 mg Q6H PRN IV NAUSEA/VOMITING; Start 08/18/18 at 18:00 Acetaminophen (Tylenol Tab) 650 mg Q6H PRN PO .PAIN 1-3 OR TEMP; Start 08/18/18 at 18:00 Docusate Sodium (Colace) 100 mg Q12H PRN PO .CONSTIPATION; Start 08/18/18 at 18:00 Bisacodyl (Dulcolax) 5 mg DAILY PRN PO .CONSTIPATION; Start 08/18/18 at 18:00 Cefepime HCl 50 ml @ 100 mls/hr Q24H IV Last administered on 08/20/18at 14:24; Admin Dose 100 MLS/HR; Start 08/19/18 at 12:00 Furosemide (Lasix) 20 mg BID DIURETICS IV Last administered on 08/21/18at 06:15; Admin Dose 20 MG; Start 08/18/18 at 18:00 Miscellaneous Information 1 ea NOTE XX ; Start 08/18/18 at 18:00 Glucose (Glutose) 15 gm Q15M PRN PO DECREASED GLUCOSE; Start 08/18/18 at 18:00 Glucose (Glutose) 22.5 gm Q15M PRN PO DECREASED GLUCOSE; Start 08/18/18 at 18:00 Dextrose (D50w Syringe) 25 ml Q15M PRN IV DECREASED GLUCOSE; Start 08/18/18 at 18:00 Dextrose (D50w Syringe) 50 ml Q15M PRN IV DECREASED GLUCOSE; Start 08/18/18 at 18:00 Glucagon (Glucagen) 1 mg Q15M PRN IM DECREASED GLUCOSE; Start 08/18/18 at 18:00 Glucose (Glutose) 15 gm Q15M PRN BUCCAL DECREASED GLUCOSE; Start 08/18/18 at 18:00 Multivitamins Therapeutic (Theragran) 1 tab DAILY PO Last administered on 08/21/18at 08:24; Admin Dose 1 TAB; Start 08/19/18 at 09:00 Atorvastatin Calcium (Lipitor) 10 mg DAILY@21 PO Last administered on 08/20/18at 21:29; Admin Dose 10 MG; Start 08/18/18 at 21:00 Insulin Aspart (Novolog Insulin Pen) NOVOLOG *MILD* ALGORITHM WITH MEALS BE DTIME SC Last administered on 08/19/18at 20:47; Admin Dose 4 UNIT; Start 08/18/18 at 18:00 Hydralazine HCl (Apresoline) 10 mg Q4H PRN IV SBP >170; Start 08/19/18 at 09:00 YADIRA COLLINS MD Aug 21, 2018 10:33
[2018-08-21] MEDS: CEFEPIME 2GM/50 ML (PMX) 50 ML IV SCH (11:41)
[2018-08-21] MEDS: DEXTROSE 5%-0.45% NACL 1,000 ML IV SCH (11:42)
[2018-08-21 12:03] VITALS: BP 144/60; PULSE 66; RESP 24
[2018-08-21 15:23] VITALS: BP 125/60; PULSE 77; RESP 24
--- NOTE | 2018-08-21 17:15 | PN ---
DATE: 08/21/2018 SUBJECTIVE: Chart reviewed. The patient currently on 2 liter nasal cannula, saturating 95% and does not appear in acute distress. PHYSICAL EXAMINATION: VITAL SIGNS: Blood pressure 120/52, pulse 63, respiration 18, temperature is 97.5. HEENT: Pupils are equal and reactive to light. NECK: Supple, no JVD noted. No cervical adenopathy noted. LUNGS: Decreased breath sounds at the left base. CARDIOVASCULAR: S1, S2 normal. ABDOMEN: Soft, nontender. No megaly or masses noted. EXTREMITIES: No clubbing or cyanosis noted. NEUROLOGIC: No changes. LABORATORY DATA: WBC 11, hemoglobin 11, hematocrit 34.2, platelets 310. Sodium 139, potassium 4.0, chloride 97, CO2 35, BUN 29, creatinine 1.09, glucose 163. IMPRESSION: 1. Recurrent left pleural effusion, status post thoracentesis. 2. Chronic obstructive pulmonary disease. 3. Dementia. 4. Acute on chronic left ventricular systolic failure. 5. Diabetes mellitus. 6. Hypertension. 7. History of schizophrenia. RECOMMENDATIONS: 1. Continue treatment. 2. Followup on pleural fluid studies. 3. Herrera evaluation pending. Dictated By: SHIRA SPANGLER MD, MA/NTS Conf#: [id number] DID#: [id number] CC: YADIRA COLLINS MD;*EndCC*
[2018-08-21 19:38] VITALS: BP 103/56; PULSE 71; RESP 22
[2018-08-21] MEDS: MIRTAZAPINE 15 MG TAB PO SCH (21:22)
[2018-08-21] MEDS: ARIPIPRAZOLE 10 MG TAB PO SCH (21:22)
[2018-08-21] MEDS: ATORVASTATIN 10 MG TAB PO SCH (21:23)
[2018-08-21] MEDS: INSULIN GLARGINE [LANTus] (100 UNITS/ML) SYG SC SCH (21:49)
[2018-08-22 00:33] VITALS: BP 103/54; PULSE 69; RESP 22
[2018-08-22 04:04] VITALS: BP 140/67; PULSE 73; RESP 22
[2018-08-22] MEDS: FUROSEMIDE 20 MG INJ IV SCH ×2 (05:47→17:35)
[2018-08-22] MEDS: PANTOPRAZOLE (EC) 40 MG TAB PO SCH (05:52)
[2018-08-22 07:23] VITALS: BP 137/68; PULSE 90; RESP 18
[2018-08-22] MEDS: INSULIN ASPART [NOVOLOG] 3 ML PEN SC SCH ×4 (08:00→21:23)
[2018-08-22] MEDS: DEXTROSE 5%-0.45% NACL 1,000 ML IV SCH (08:13)
[2018-08-22] MEDS: CALCIUM/VITAMIN D (500/200) TAB PO SCH (08:19)
[2018-08-22] MEDS: FLUTICASONE/VILANTEROL 100-25 INH SCH (08:19)
[2018-08-22] MEDS: MULTIVITAMINS THERAPEUTIC TAB PO SCH (08:19)
[2018-08-22] MEDS: ASPIRIN (EC) 81 MG TAB PO SCH (08:19)
[2018-08-22] MEDS: ASCORBIC ACID 500 MG TAB PO SCH ×2 (08:19→21:17)
[2018-08-22] MEDS: CHOLECALCIFEROL 1,000 UNIT TAB PO SCH ×2 (08:19→21:17)
[2018-08-22] MEDS: ZINC SULFATE 220 MG CAP PO SCH (08:20)
--- NOTE | 2018-08-22 10:08 | PN ---
Date/Time of Note Date/Time of Note DATE: 08/22/18 TIME: 10:08 Objective Vitals Vital Signs Date Temp Pulse Resp B/P (MAP) Pulse Ox O2 O2 Flow FiO2 Time Delivery Rate 08/22/18 98.0 90 18 137/68 98 07:23 (91) 08/21/18 Nasal 2.0 20:00 Cannula Intake and Output 08/21/18 08/21/18 08/22/18 1515:00 23:00 07:00 IntakeIntake Total 50 ml 360 ml 300 ml BalanceBalance 50 ml 360 ml 300 ml Results Result Diagram: 08/22/1890008/22/18900 Medications Medications Current Medications Aripiprazole (Abilify) 10 mg QHS PO Last administered on 08/21/18 21:22; Admin Dose 10 MG; Start 08/18/18 at 21:00 Ascorbic Acid (Vitamin C) 500 mg BID PO Last administered on 08/21/18 21:23; Admin Dose 500 MG; Start 08/18/18 at 21:00 Aspirin (Halfprin) 81 mg DAILY PO Last administered on 08/21/18 08:24; Admin Dose 81 MG; Start 08/19/18 at 09:00 Calcium/Vitamin D (Oyster Shell/ Vit-D (500/200)) 1 tab DAILY PO Last administered on 08/21/18 08:24; Admin Dose 1 TAB; Start 08/19/18 at 09:00 Carvedilol (Coreg) 6.25 mg BID PO Last administered on 08/21/18 21:24; Admin Dose 6.25 MG; Start 08/18/18 at 21:00 Cholecalciferol (Vitamin D) 1,000 unit BID PO Last administered on 08/21/18 21:22; Admin Dose 1,000 UNIT; Start 08/18/18 at 21:00 Fluticasone/ Vilanterol (Breo Ellipta 100-25 Mcg Inh) 1 inh DAILY INH Last administered on 08/21/18 08:23; Admin Dose 1 INH; Start 08/19/18 at 09:00 Insulin Glargine (Lantus) 10 units QHS SC Last administered on 08/21/18 21:49; Admin Dose 10 UNITS; Start 08/18/18 at 21:00 Magnesium Hydroxide (Milk Of Mag) 30 ml DAILY PRN PO constipation; Start 08/18/18 at 18:00 Mirtazapine (Remeron) 30 mg HS PO Last administered on 08/21/18at 21:22; Admin Dose 30 MG; Start 08/18/18 at 21:00 Pantoprazole (Protonix Tab) 40 mg AC BREAKFAST PO Last administered on 08/21/18at 06:15; Admin Dose 40 MG; Start 08/19/18 at 07:00 Zinc Sulfate (Zinc Sulfate) 220 mg DAILY PO Last administered on 08/21/18at 08:24; Admin Dose 220 MG; Start 08/19/18 at 09:00 IV Flush (NS 3 ml) 3 ml PER PROTOCOL IV ; Start 08/18/18 at 18:00 Ondansetron HCl (Zofran Inj) 4 mg Q6H PRN IV NAUSEA/VOMITING; Start 08/18/18 at 18:00 Acetaminophen (Tylenol Tab) 650 mg Q6H PRN PO .PAIN 1-3 OR TEMP; Start 08/18/18 at 18:00 Docusate Sodium (Colace) 100 mg Q12H PRN PO .CONSTIPATION; Start 08/18/18 at 18:00 Bisacodyl (Dulcolax) 5 mg DAILY PRN PO .CONSTIPATION; Start 08/18/18 at 18:00 Cefepime HCl 50 ml @ 100 mls/hr Q24H IV Last administered on 08/21/18at 11:41; Admin Dose 100 MLS/HR; Start 08/19/18 at 12:00 Furosemide (Lasix) 20 mg BID DIURETICS IV Last administered on 08/22/18at 05:47; Admin Dose 20 MG; Start 08/18/18 at 18:00 Miscellaneous Information 1 ea NOTE XX ; Start 08/18/18 at 18:00 Glucose (Glutose) 15 gm Q15M PRN PO DECREASED GLUCOSE; Start 08/18/18 at 18:00 Glucose (Glutose) 22.5 gm Q15M PRN PO DECREASED GLUCOSE; Start 08/18/18 at 18:00 Dextrose (D50w Syringe) 25 ml Q15M PRN IV DECREASED GLUCOSE; Start 08/18/18 at 18:00 Dextrose (D50w Syringe) 50 ml Q15M PRN IV DECREASED GLUCOSE; Start 08/18/18 at 18:00 Glucagon (Glucagen) 1 mg Q15M PRN IM DECREASED GLUCOSE; Start 08/18/18 at 18:00 Glucose (Glutose) 15 gm Q15M PRN BUCCAL DECREASED GLUCOSE; Start 08/18/18 at 18:00 Multivitamins Therapeutic (Theragran) 1 tab DAILY PO Last administered on 08/21/18at 08:24; Admin Dose 1 TAB; Start 08/19/18 at 09:00 Atorvastatin Calcium (Lipitor) 10 mg DAILY@21 PO Last administered on 08/21/18at 21:23; Admin Dose 10 MG; Start 08/18/18 at 21:00 Insulin Aspart (Novolog Insulin Pen) NOVOLOG *MILD* ALGORITHM WITH MEALS BEDTIME SC Last administered on 08/21/18at 21:49; Admin Dose 2 UNIT; Start 08/18/18 at 18:00 Hydralazine HCl (Apresoline) 10 mg Q4H PRN IV SBP >170; Start 08/19/18 at 09:00 Dextrose/Sodium Chloride 1,000 ml @ 20 mls/hr Q24H IV Last administered on 08/21/18at 11:42; Admin Dose 20 MLS/HR; Start 08/21/18 at 10:30 Piperacillin Sod/ Tazobactam Sod 100 ml @ 200 mls/hr Q6 IVPB ; Start 08/22/18 at 12:00; Status UNV Albuterol/ Ipratropium (Duoneb) 3 ml Q6HWA RESP THERAPY HHN ; Start 08/22/18 at 14:00; Status UNV Albuterol/ Ipratropium (Duoneb) 3 ml Q2H RESP THERAPY PRN HHN shortness of breath; Start 08/22/18 at 10:30; Status UNV VTE Prophylaxis Risk score (from Ns)>0 risk: 6 SCD applied (from Ns): Yes Lines/Catheters IV Catheter Type: Velez in Place: No Assessment/Plan Hospital Course Subjective Patient able to converse however does have a degree of dementia, apparently refuses to eat per nursing staff, also has difficulty getting blood draws Objective Physical exam General: Patient is laying in bed and answers questions Mentation: Patient is alert but not fully oriented, Head: Normocephalic atraumatic Eyes: EOMI, pupils reactive to light Neck: Supple, nontender, midline Respiratory: Coarse to auscultation bilaterally Cardiovascular: regular rate, no obvious murmurs Gastrointestinal: non-tender to palpation, bowel sounds heard. Neurological: Moves all extremities spontaneously Skin: Skin lesion on forehead Assessment/Plan Large left sided pleural effusion s/p thoracentesis - 900 cc removed on 08/19 - repeat CXR showing large left sided pneumonia - Pulm on board and appreciate consultation. believes patient would benefit from Herrera given has had recurrent pleural effusions and may need another thoracentesis - seen on CXR - patient has thora performed at [facility] on 08/11/18 with 600cc removed Acute on chronic congestive heart failure - ECHO results noted. small pericardial effusion but no tamponade appreciated - continue on current diuretics and monitor I/O - BNP noted -cardiology consulted PNA? -abx started -ID consulted -chest xray pending Acute chest pain, resolved - ACS ruled out - most likely secondary to #1 - serial trops negative - nitro and O2 PRN - EKG negative for acute ST changes Diabetes Mellitus - continue Lantus and ISS - A1c noted Alzheimers dementia - continue home medications Left forehead mass - follow as outpatient -We will need to speak to whoever is taking care of patients so that she can get the appropriate follow-up. COPD -Continue nebulizers HTN - continue home medications and adjust as needed Schizophrenia - continue home medications Disposition - Pending Herrera evaluation given frequent thoracentesis and large left sided pneumonia seen on CXR. Awaiting fluid cx results MARCELLA NIEVES Aug 22, 2018 10:08
[2018-08-22] MEDS ORDERED: ALBUTEROL/IPRATROPIUM (NEB) 3 ML AMP HHN PRN (10:30)
--- NOTE | 2018-08-22 11:03 | CONS ---
Consultation Date/Type/Reason Admit Date/Time Aug 18, 2018 at 18:25 Initial Consult Date Type of Consult Pulmonary Patient's condition is a stable. Remains awake and alert. Denies any shortness of breath. General exam; elderly woman, currently in no distress. H EENT exam; supple neck, no lymphadenopathy. Positive JVD. Patient has a multiple carious teeth. No neck masses. Pupils are small bilaterally. Chest exam; diminished breath sounds bilaterally. S1-S2 audible, soft grade 2/6 systolic ejection murmur. Regular rhythm. Abdomen exam; soft, nontender. Nondistended. No organomegaly. Bowel sounds are audible. Extremity exam; no peripheral edema. 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 Assessment and recommendations; 1. Patient admitted with left-sided pneumonia with pleural effusion status post thoracentesis. 2. CHF. 3. Diabetes. 4. Hypertension. 5. Anemia. 6. History of bipolar disorder. 7. Diastolic dysfunction. Continue current supportive care. Obtain follow-up chest x-ray 24 hours. Date/Time of Note DATE: 08/22/18 TIME: 11:02 Exam/Review of Systems Exam Vitals Vital Signs Date Temp Pulse Resp B/P (MAP) Pulse Ox O2 O2 Flow FiO2 Time Delivery Rate 08/22/18 98.0 90 18 137/68 98 07:23 (91) 08/21/18 Nasal 2.0 20:00 Cannula Intake and Output 08/21/18 08/21/18 08/22/18 1515:00 23:00 07:00 IntakeIntake Total 50 ml 360 ml 300 ml BalanceBalance 50 ml 360 ml 300 ml Results Result Diagram: 08/22/18 0908/22/18 09 Results 24hrs Laboratory Tests Test 08/21/18 11:57 08/21/18 17:23 08/21/18 20:58 08/22/18 02:10 Bedside Glucose 106 115 237 H 160 Test 08/22/18 08:15 08/22/18 09:01 Bedside Glucose 130 White Blood Count 8.9 Red Blood Count 3.67 L Hemoglobin 11.0 L Hematocrit 33.1 L Mean Corpuscular 90.2 Volume Mean Corpuscular 30.0 Hemoglobin Mean Corpuscular 33.2 Hemoglobin Concent Red Cell 13.2 Distribution Width Platelet Count 334 Mean Platelet Volume 10.4 Immature 0.300 Granulocytes % Neutrophils % 68.2 Lymphocytes % 20.4 Monocytes % 8.7 Eosinophils % 2.1 Basophils % 0.3 Nucleated Red Blood 0.0 Cells % Immature 0.030 Granulocytes # Neutrophils # 6.0 Lymphocytes # 1.8 Monocytes # 0.8 Eosinophils # 0.2 Basophils # 0.0 Nucleated Red Blood 0.0 Cells # Sodium Level 141 Potassium Level 3.4 L Chloride Level 99 Carbon Dioxide Level 33 H Anion Gap 9 Blood Urea Nitrogen 33 H Creatinine 0.94 Glucose Level 132 Calcium Level 9.1 Phosphorus Level 3.6 Magnesium Level 1.7 Albumin 3.1 L Medications Medication Current Medications Aripiprazole (Abilify) 10 mg QHS PO Last administered on 08/21/18 21:22; Admin Dose 10 MG; Start 08/18/18 at 21:00 Ascorbic Acid (Vitamin C) 500 mg BID PO Last administered on 08/21/18 21:23; Admin Dose 500 MG; Start 08/18/18 at 21:00 Aspirin (Halfprin) 81 mg DAILY PO Last administered on 08/21/18 08:24; Admin Dose 81 MG; Start 08/19/18 at 09:00 Calcium/Vitamin D (Oyster Shell/ Vit-D (500/200)) 1 tab DAILY PO Last administered on 08/21/18 08:24; Admin Dose 1 TAB; Start 08/19/18 at 09:00 Carvedilol (Coreg) 6.25 mg BID PO Last administered on 08/21/18 21:24; Admin Dose 6.25 MG; Start 08/18/18 at 21:00 Cholecalciferol (Vitamin D) 1,000 unit BID PO Last administered on 08/21/18 21:22; Admin Dose 1,000 UNIT; Start 08/18/18 at 21:00 Insulin Glargine (Lantus) 10 units QHS SC Last administered on 08/21/18 21:49; Admin Dose 10 UNITS; Start 08/18/18 at 21:00 Magnesium Hydroxide (Milk Of Mag) 30 ml DAILY PRN PO constipation; Start 08/18/18 at 18:00 Mirtazapine (Remeron) 30 mg HS PO Last administered on 08/21/18 21:22; Admin Dose 30 MG; Start 08/18/18 at 21:00 Pantoprazole (Protonix Tab) 40 mg AC BREAKFAST PO Last administered on 08/21/18at 06:15; Admin Dose 40 MG; Start 08/19/18 at 07:00 Zinc Sulfate (Zinc Sulfate) 220 mg DAILY PO Last administered on 08/21/18at 08:24; Admin Dose 220 MG; Start 08/19/18 at 09:00 IV Flush (NS 3 ml) 3 ml PER PROTOCOL IV ; Start 08/18/18 at 18:00 Ondansetron HCl (Zofran Inj) 4 mg Q6H PRN IV NAUSEA/VOMITING; Start 08/18/18 at 18:00 Acetaminophen (Tylenol Tab) 650 mg Q6H PRN PO .PAIN 1-3 OR TEMP; Start 08/18/18 at 18:00 Docusate Sodium (Colace) 100 mg Q12H PRN PO .CONSTIPATION; Start 08/18/18 at 18:00 Bisacodyl (Dulcolax) 5 mg DAILY PRN PO .CONSTIPATION; Start 08/18/18 at 18:00 Cefepime HCl 50 ml @ 100 mls/hr Q24H IV Last administered on 08/21/18at 11:41; Admin Dose 100 MLS/HR; Start 08/19/18 at 12:00 Furosemide (Lasix) 20 mg BID DIURETICS IV Last administered on 08/22/18at 05 :47; Admin Dose 20 MG; Start 08/18/18 at 18:00 Miscellaneous Information 1 ea NOTE XX ; Start 08/18/18 at 18:00 Glucose (Glutose) 15 gm Q15M PRN PO DECREASED GLUCOSE; Start 08/18/18 at 18:00 Glucose (Glutose) 22.5 gm Q15M PRN PO DECREASED GLUCOSE; Start 08/18/18 at 18:00 Dextrose (D50w Syringe) 25 ml Q15M PRN IV DECREASED GLUCOSE; Start 08/18/18 at 18:00 Dextrose (D50w Syringe) 50 ml Q15M PRN IV DECREASED GLUCOSE; Start 08/18/18 at 18:00 Glucagon (Glucagen) 1 mg Q15M PRN IM DECREASED GLUCOSE; Start 08/18/18 at 18:00 Glucose (Glutose) 15 gm Q15M PRN BUCCAL DECREASED GLUCOSE; Start 08/18/18 at 18:00 Multivitamins Therapeutic (Theragran) 1 tab DAILY PO Last administered on 08/21/18at 08:24; Admin Dose 1 TAB; Start 08/19/18 at 09:00 Atorvastatin Calcium (Lipitor) 10 mg DAILY@21 PO Last administered on 08/21/18at 21:23; Admin Dose 10 MG; Start 08/18/18 at 21:00 Insulin Aspart (Novolog Insulin Pen) NOVOLOG *MILD* ALGORITHM WITH MEALS BEDTIME SC Last administered on 08/21/18at 21:49; Admin Dose 2 UNIT; Start 08/18/18 at 18:00 Hydralazine HCl (Apresoline) 10 mg Q4H PRN IV SBP >170; Start 08/19/18 at 09:00 Dextrose/Sodium Chloride 1,000 ml @ 20 mls/hr Q24H IV Last administered on 08/21/18at 11:42; Admin Dose 20 MLS/HR; Start 08/21/18 at 10:30 Piperacillin Sod/ Tazobactam Sod 100 ml @ 200 mls/hr Q6 IVPB ; Start 08/22/18 at 12:00 Albuterol/ Ipratropium (Duoneb) 3 ml Q6HWA RESP THERAPY HHN ; Start 08/22/18 at 14:00 Albuterol/ Ipratropium (Duoneb) 3 ml Q2H RESP THERAPY PRN HHN shortness of breath; Start 08/22/18 at 10:30 Budesonide (Pulmicort (Neb)) 0.5 mg BID RESP THERAPY HHN ; Start 08/22/18 at 20:00 GIDEON ALEXANDRA Aug 22, 2018 11:03
[2018-08-22] MEDS ORDERED: VANCOMYCIN IV PER PHARMACY XX SCH (11:30)
[2018-08-22 11:40] VITALS: BP 121/59; PULSE 68; RESP 18
--- NOTE | 2018-08-22 11:49 | CONS ---
DATE OF ADMISSION: 08/18/2018 DATE OF CONSULTATION: 08/22/2018 TYPE OF CONSULTATION: Infectious disease. REASON FOR CONSULTATION: Antibiotic management. HISTORY OF PRESENT ILLNESS: Zohra Dumont is an 88-year-old female who comes to the Emergency Room wi th chest pressure and is being seen for antibiotic management. Her past problems include: 1. 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 2. Senile dementia. 3. Diabetes mellitus. She comes in from a half-way. Pain was mostly on the left side of her ch est that did not radiate anywhere. Her primary language is Ivorian. She was given nitroglycerin wit h no change in her symptoms. She was in [facility] where she had been admitted on 08/06/2018. She had a left pleural effusion and had a thoracentesis that was performed. There is also report of schizophrenia and underlying COPD as she has had an extensive tobacco history. PAST MEDICAL HISTORY: Essentially as outlined. FAMILY HISTORY: Noncontributory. SOCIAL HISTORY: She does not smoke, drink or abuse drugs. ALLERGIES: LEVAQUIN. MEDICATIONS: Per chart. REVIEW OF SYSTEMS: Noncontributory. PHYSICAL EXAMINATION: GENERAL: The patient is well-developed, well-nourished female who is awake, responsive, in no acute distress. VITAL SIGNS: Stable. She is afebrile. T-max of 99.8 in the Emergency Room. SKIN: Without generalized rash. HEENT: Within normal limits. NECK: Supple. LYMPH NODES: None palpable. CHEST: Decreased breath sounds at the bases. HEART: Without murmur or gallop. ABDOMEN: Soft, nontender, without organosplenomegaly or masses. EXTREMITIES: Without cyanosis, clubbing, or edema. RECTAL AND GENITAL: Deferred. NEUROLOGIC: No focal neurological abnormalities. ANCILLARY LABORATORY DATA: White count of 12.5 with 79% neutrophils, H and H 11.5 and 34.9, platelet count 303,000. BUN and creatinine 17/0.67, glucose of 214. IMPRESSION AND PLAN: The patient was started on vancomycin and cefepime. She had chest pain on admi ssion as noted. She is hypoxic. Chest x-ray showed a large left pleural effusion. She had a recent thoracentesis at [facility]. The patient was admitted to Dr. Pizarro, pulmonary consultation wa s placed. The patient was seen by Dr. Vadgama, recurrent left pleural effusion, possible aspiration component. We will repeat thoracentesis. On the she was seen by Dr. Prasad. Patient is status post left thoracentesis with 700 mL of fluid removed. Oxygen saturation at 95%. White count 11.2 on the . BUN and creatinine 24/0.96, so recurrent left pleural effusion, status post thoracentesis , COPD, Alzheimer disease. She may benefit from Herrera following her hospitalizations. Microbiology : Blood cultures are negative. White count today is 8.9. The patient currently on both cefepime an d Zosyn which does not compute. Chest x-ray, worsening left lower lung pneumonia with effusion, card iomegaly. The patient was seen by Dr. Mendoza. White count 8.9. She should not be on both cefepime and Zosyn. We will stop the cefepime for the time being, continue the Zosyn and we may want to add vanc omycin to her regimen. I will dictate my findings to the hospitalists and to Dr. Jiang and Dr. Prasad. Dictated By: JB MONTALVO MD, JD/NTS Conf#: [id number] DID#: [id number] CC: YADIRA PIZARRO MD;*End*
[2018-08-22] MEDS ORDERED: VANCOMYCIN 1 GM 250 ML IVPB ONE (12:00)
[2018-08-22] MEDS: PIPER-TAZO 3.375 GM IV (PMX) 100 ML IVPB SCH ×3 (12:32→23:48)
[2018-08-22] MEDS ORDERED: VANCOMYCIN 750 MG (PMX) 250 ML IVPB SCH (14:00)
[2018-08-22] MEDS: ALBUTEROL/IPRATROPIUM (NEB) 3 ML AMP HHN SCH ×2 (14:35→20:49)
[2018-08-22 16:13] VITALS: BP 125/62; PULSE 75; RESP 18
--- NOTE | 2018-08-22 18:12 | CONS ---
Assessment/Plan Assessment/Plan Hospital Course (Demo Recall) Left pleural effusion doubt related to congestive heart failure. Probably underlying pulmonary disease possibly cancer although so far work-up has been negative for cancer Small pericardial effusion appears to be related to above Moderate aortic stenosis Dementia memory impairment Possible pneumonia on antibiotic now Recommendations: We will continue with the current dose of diuretics and adjusted as needed. We will check the renal function test and BNP level tomorrow Follow-up with pulmonary recommendation. Consider CT scan of the chest especially after thoracentesis is done. Respiratory care as per pulmonary Follow transfer is being entertained Thank you for his referral. We will continue to follow along with you YAZMIN LEOS MD [facility] Consultation Date/Type/Reason Admit Date/Time Aug 18, 2018 at 18:25 Date of Consultation: Aug 22, 2018 Type of Consult Cardiology Reason for Consultation pericardial effusion/. Requesting Provider: MARCELLA NIEVES Date/Time of Note DATE: 08/22/18 TIME: 18:00 Hx of Present Illness Interventional cardiology consultation note Chief complaint: chest pain Reason for consult: pericardial effusion History of present illness: Thank you for this referral. History was obtained from the review of the chart discussion with the staff and physician. Patient stable extremely poor historian This is a 88-year-old female with a reported history of congestive heart failure who had presented to emergency room half-way because of left-sided chest pain. Patient herself is a poor historian is not able to provide any history to me does not have any chest pain at this time he does not remember any chest pains either. She was noted to have a large left-sided pleural effusion. Thoracentesis has been done on August 19, 2018 and 900 cc of the fluid was removed. She denies any PND orthopnea to me. Echocardiogram has showed also a small pe ricardial effusion for which I was kindly asked to evaluate and treat Allergies: Levaquin Medications were reviewed as per medical reconciliation sheet Family history: No reported history early coronary artery disease Social history: Lives in a half-way. He is not smoking at this point [facility] Past medical history: pleural effusion, congestive heart failure, HTN, Alzheimers dementia, COPD, Depression, diabetes mellitus, Review of system: Patient denies all others except for above-mentioned Past Medical History Home Meds Reported Medications Cholecalciferol* (Vitamin D3*) 1,000 Unit Tablet, 1000 UNIT PO BID, TAB 08/18/18 Calcium Carbonate/Vitamin D3 (OYSTER SHELL 500 MG + VIT D TB) 1 Each Tablet, 1 EACH PO DAILY, TAB 08/18/18 Magnesium Oxide* (Magnesium Oxide*) 400 Mg Tablet, 400 MG PO BID, TAB 08/18/18 Simvastatin* (Zocor*) 10 Mg Tablet, 10 MG PO QHS, #30 TAB 08/18/18 Mirtazapine* (Remeron*) 30 Mg Tablet, 30 MG PO HS, TAB 08/18/18 Lorazepam* (Ativan*) 0.5 Mg Tablet, 0.5 MG PO BID PRN for ANXIETY, #30 TAB 08/18/18 Aripiprazole* (Abilify*) 10 Mg Tablet, 10 MG PO QHS, #30 TAB 08/18/18 Zinc Sulfate* (Zinc Sulfate*) 220 Mg Tablet, 220 MG PO DAILY, TAB 08/18/18 Sennosides* (Senna Lax*) 8.6 Mg Tablet, 1 TAB PO DAILY, TAB 08/18/18 Amino Acids/Protein Hydrolys (PRO-STAT LIQUID) 30 Ml Liquid.pkt, 30 ML PO TID SUGAR FREE 08/18/18 Pantoprazole* (Pantoprazole*) 40 Mg Tablet.dr, 40 MG PO AC BREAKFAST, TAB 08/18/18 Multivitamin with Minerals (Multivitamins with Minerals) 1 Each Tablet, 1 EACH PO DAILY, TAB 08/18/18 Magnesium Hydroxide* (Milk Of Magnesia*) 400 Mg/5 Ml Oral.susp, 30 ML PO NEEDED, ML 08/18/18 Melatonin (Melatonin) 3 Mg Tablet.sa, 3 MG PO HS, TAB.SA 08/18/18 Insulin Glargine* (Lantus*) 100 Unit/Ml Soln, 10 UNIT SC QHS PRN for HOLD IF BS<100MG/DL, #1 VIAL 08/18/18 Sodium Phosphate,Forest-Dibasic (Enema Ready To Use) Unknown Strength Enema, 118 ML RC NEEDED, ENEMA 08/18/18 Bisacodyl (Dulcolax) 10 Mg Supp.rect, 10 MG RC NEEDED, SUPP.RECT 08/18/18 Carvedilol* (Coreg*) 6.25 Mg Tablet, 6.25 MG PO BID, #60 TAB HOLD FOR SBP<110 OR MI<60 08/18/18 Docusate Sodium* (Colace*) 100 Mg Capsule, 100 MG PO BID, #60 CAP 08/18/18 Fluticasone-Vilanterol (Breo Ellipta Inhaler) 100-25 Mcg/Actuation Aer.pow.ba, 1 PUFF INHALATION DAILY, #1 INHALER 08/18/18 Nut.tx.gluc Intol,Lf,Soy/Fiber (Boost Glucose Control Liquid) 237 Ml Liquid, PO QID 08/18/18 Aspirin* (Aspirin* EC) 81 Mg Tablet.dr, 81 MG PO DAILY, TAB 08/18/18 Ascorbic Acid (Vitamin C) 500 Mg Tab, 500 MG PO BID, TAB 08/18/18 Albuterol Sulfate* (Albuterol Sulfate* Neb) 0.083%-3 Ml Neb, 2.5 MG NEB Q6H PRN for WHEEZING AND SOB, #30 VIAL 08/18/18 Insulin Lispro (Humalog Kwikpen U-100) 100 Unit/1 Ml Insuln.pen, 0 SQ SLIDING SCALE, EA IF BS LESS THAN 70 CALL MD. IF BS 70-150=0 UNIT, 151-200=2 UNITS,201-250=4 UNITS, 251-300=6 UNITS, 301-350=8 UNITS,351-400=10 UNITS, IF BS>400=12 UNITS AND CALL MD. 08/18/18 Acetaminophen* (Acetaminophen*) 325 Mg Tablet, 650 MG PO Q6H PRN for MILD PAIN LEVEL 1-3, #30 TAB 08/18/18 Medications Current Medications Aripiprazole (Abilify) 10 mg QHS PO Last administered on 08/21/18at 21:22; Admin Dose 10 MG; Start 08/18/18 at 21:00 Ascorbic Acid (Vitamin C) 500 mg BID PO Last administered on 08/21/18at 21:23; Admin Dose 500 MG; Start 08/18/18 at 21:00 Aspirin (Halfprin) 81 mg DAILY PO Last administered on 08/21/18at 08:24; Admin Dose 81 MG; Start 08/19/18 at 09:00 Calcium/Vitamin D (Oyster Shell/ Vit-D (500/200)) 1 tab DAILY PO Last administered on 08/21/18at 08:24; Admin Dose 1 TAB; Start 08/19/18 at 09:00 Carvedilol (Coreg) 6.25 mg BID PO Last administered on 08/21/18 21:24; Admin Dose 6.25 MG; Start 08/18/18 at 21:00 Cholecalciferol (Vitamin D) 1,000 unit BID PO Last administered on 08/21/18 21:22; Admin Dose 1,000 UNIT; Start 08/18/18 at 21:00 Insulin Glargine (Lantus) 10 units QHS SC Last administered on 08/21/18 21:49; Admin Dose 10 UNITS; Start 08/18/18 at 21:00 Magnesium Hydroxide (Milk Of Mag) 30 ml DAILY PRN PO constipation; Start 08/18/18 at 18:00 Mirtazapine (Remeron) 30 mg HS PO Last administered on 08/21/18 21:22; Admin Dose 30 MG; Start 08/18/18 at 21:00 Pantoprazole (Protonix Tab) 40 mg AC BREAKFAST PO Last administered on 08/21/18 06:15; Admin Dose 40 MG; Start 08/19/18 at 07:00 Zinc Sulfate (Zinc Sulfate) 220 mg DAILY PO Last administered on 08/21/18 08:24; Admin Dose 220 MG; Start 08/19/18 at 09:00 IV Flush (NS 3 ml) 3 ml PER PROTOCOL IV ; Start 08/18/18 at 18:00 Ondansetron HCl (Zofran Inj) 4 mg Q6H PRN IV NAUSEA/VOMITING; Start 08/18/18 at 18:00 Acetaminophen (Tylenol Tab) 650 mg Q6H PRN PO .PAIN 1-3 OR TEMP; Start 08/18/18 at 18:00 Docusate Sodium (Colace) 100 mg Q12H PRN PO .CONSTIPATION; Start 08/18/18 at 18:00 Bisacodyl (Dulcolax) 5 mg DAILY PRN PO .CONSTIPATION; Start 08/18/18 at 18:00 Furosemide (Lasix) 20 mg BID DIURETICS IV Last administered on 08/22/18 17:35; Admin Dose 20 MG; Start 08/18/18 at 18:00 Miscellaneous Information 1 ea NOTE XX ; Start 08/18/18 at 18:00 Glucose (Glutose) 15 gm Q15M PRN PO DECREASED GLUCOSE; Start 08/18/18 at 18:00 Glucose (Glutose) 22.5 gm Q15M PRN PO DECREASED GLUCOSE; Start 08/18/18 at 18:00 Dextrose (D50w Syringe) 25 ml Q15M PRN IV DECREASED GLUCOSE; Start 08/18/18 at 18:00 Dextrose (D50w Syringe) 50 ml Q15M PRN IV DECREASED GLUCOSE; Start 08/18/18 at 18:00 Glucagon (Glucagen) 1 mg Q15M PRN IM DECREASED GLUCOSE; Start 08/18/18 at 18:00 Glucose (Glutose) 15 gm Q15M PRN BUCCAL DECREASED GLUCOSE; Start 08/18/18 at 18:00 Multivitamins Therapeutic (Theragran) 1 tab DAILY PO Last administered on 08/21at 08:24; Admin Dose 1 TAB; Start 08/19/18 at 09:00 Atorvastatin Calcium (Lipitor) 10 mg DAILY@21 PO Last administered on 08/21/18at 21:23; Admin Dose 10 MG; Start 08/18/18 at 21:00 Insulin Aspart (Novolog Insulin Pen) NOVOLOG *MILD* ALGORITHM WITH MEALS BEDTIME SC Last administered on 08/21/18at 21:49; Admin Dose 2 UNIT; Start 08/18/18 at 18:00 Hydralazine HCl (Apresoline) 10 mg Q4H PRN IV SBP >170; Start 08/19/18 at 09:00 Dextrose/Sodium Chloride 1,000 ml @ 20 mls/hr Q24H IV Last administered on 08/21/18at 11:42; Admin Dose 20 MLS/HR; Start 08/21/18 at 10:30 Piperacillin Sod/ Tazobactam Sod 100 ml @ 200 mls/hr Q6 IVPB Last administered on 08/22/18at 17:35; Admin Dose 200 MLS/HR; Start 08/22/18 at 12:00 Albuterol/ Ipratropium (Duoneb) 3 ml Q6HWA RESP THERAPY HHN Last administered on 08/22/18at 14:35; Admin Dose 3 ML; Start 08/22/18 at 14:00 Albuterol/ Ipratropium (Duoneb) 3 ml Q2H RESP THERAPY PRN HHN shortness of breath; Start 08/22/18 at 10:30 Budesonide (Pulmicort (Neb)) 0.5 mg BID RESP THERAPY HHN ; Start 08/22/18 at 20:00 Vancomycin HCl (Vanco Iv Per Pharmacy) VANCOMYCIN PER PHARMACY PER PROTOCOL XX ; Start 08/22/18 at 11:30 Vancomycin/Sodium Chloride 250 ml @ 125 mls/hr Q24H IVPB ; Start 08/23/18 at 14:00 Allergies: Coded Allergies: levofloxacin (Verified Allergy, Unknown, 08/18/18) Past Surgical History Past Surgical Hx: noncontributory Social History Alcohol Use: none Smoking Status: Never smoker Drug Use: none Exam/Review of Systems Vital Signs Vitals Vital Signs Date Temp Pulse Resp B/P (MAP) Pulse Ox O2 O2 Flow FiO2 Time Delivery Rate 08/22/18 98.0 75 18 125/62 98 16:13 (83) 08/22/18 21 14:37 08/22/18 Nasal 2.0 08:10 Cannula Intake and Output 08/21/18 08/21/18 08/22/18 1515:00 23:00 07:00 IntakeIntake Total 50 ml 360 ml 300 ml BalanceBalance 50 ml 360 ml 300 ml Exam Exam General: no acute distress HEENT: NC/AT. pupils are equal. round. NECK: no stridor. CV: RRR. systolic murmur; no gallop or rubs. PULM: no wheezing or rhonchi. GI: SOFT, NT, ND, no rebound or guarding Extremity: trace B/L LE edema. no clubbing. neuro: awake and alert, OX1. Psych: calm and pleasant rectal: deferred Derm: Skin lesion noted on the left forehead EKG was personally showed normal sinus rhythm with marked sinus arrhythmia Echocardiogram done August 19, [address] Pearl shows: Normal left ventricular systolic function. Normal left ventricular cavity size. Moderate asymmetric septal hypertrophy. Moderate left ventricular hypertrophy. Ejection fraction is visually estimated at 60 %. Tissue Doppler/Mitral Doppler indices are consistent with pseudonormalization with mildly elevated left atrial pressure (Stage II diastolic dysfunction). Normal right ventricular size. Normal right ventricular systolic function. The left atrium is normal in size. The right atrium is normal in size. Mild mitral valve regurgitation. Moderate aortic stenosis. Trace aortic valve regurgitation. The estimated Peak RVSP is 54 mmHg. There is mild tricuspid regurgitation. Pericardial effusion, likely small in size, difficult to fully confirm secondary to large left peural effusion. No echocardiographic evidence to suggest pericardial tamponade. Further imaging if clicinally warranted. Chest x-ray done August 18, 2018 was personally reviewed which shows: 1. Large left pleural effusion. 2. Nonspecific increased density in the remaining aerated portion of the upper left lung. This may be secondary to atelectasis versus infiltrate. 3. The right lung is clear. Chest x-ray August 22, 2018 shows: Cardiomegaly with calcified atherosclerosis in the aorta. Stable patchy infiltrates throughout the left lung with small potential left pleural effusion. Scattered atelectasis in the right lung. Hyperexpanded lungs with diffuse mild interstitial prominence in both lungs. Interstitial prominence could be chronic. Findings could reflect COPD. Labs Result Diagram: 08/22/18 0908/22/18 09 Results 24hrs Laboratory Tests Test 08/21/18 20:58 08/22/18 02:10 08/22/18 08:15 08/22/18 09:01 Bedside Glucose 237 H 160 130 White Blood Count 8.9 Red Blood Count 3.67 L Hemoglobin 11.0 L Hematocrit 33.1 L Mean Corpuscular 90.2 Volume Mean Corpuscular 30.0 Hemoglobin Mean Corpuscular 33.2 Hemoglobin Concent Red Cell 13.2 Distribution Width Platelet Count 334 Mean Platelet Volume 10.4 Immature 0.300 Granulocytes % Neutrophils % 68.2 Lymphocytes % 20.4 Monocytes % 8.7 Eosinophils % 2.1 Basophils % 0.3 Nucleated Red Blood 0.0 Cells % Immature 0.030 Granulocytes # Neutrophils # 6.0 Lymphocytes # 1.8 Monocytes # 0.8 Eosinophils # 0.2 Basophils # 0.0 Nucleated Red Blood 0.0 Cells # Sodium Level 141 Potassium Level 3.4 L Chloride Level 99 Carbon Dioxide Level 33 H Anion Gap 9 Blood Urea Nitrogen 33 H Creatinine 0.94 Glucose Level 132 Calcium Level 9.1 Phosphorus Level 3.6 Magnesium Level 1.7 Albumin 3.1 L Test 08/22/18 12:30 08/22/18 17:32 Bedside Glucose 107 115 Medications Medications Current Medications Aripiprazole (Abilify) 10 mg QHS PO Last administered on 08/21/18at 21:22; Admin Dose 10 MG; Start 08/18/18 at 21:00 Ascorbic Acid (Vitamin C) 500 mg BID PO Last administered on 08/21/18 21:23; Admin Dose 500 MG; Start 08/18/18 at 21:00 Aspirin (Halfprin) 81 mg DAILY PO Last administered on 08/21/18 08:24; Admin Dose 81 MG; Start 08/19/18 at 09:00 Calcium/Vitamin D (Oyster Shell/ Vit-D (500/200)) 1 tab DAILY PO Last a dministered on 08/21/18 08:24; Admin Dose 1 TAB; Start 08/19/18 at 09:00 Carvedilol (Coreg) 6.25 mg BID PO Last administered on 08/21/18 21:24; Admin Dose 6.25 MG; Start 08/18/18 at 21:00 Cholecalciferol (Vitamin D) 1,000 unit BID PO Last administered on 08/21/18 21:22; Admin Dose 1,000 UNIT; Start 08/18/18 at 21:00 Insulin Glargine (Lantus) 10 units QHS SC Last administered on 08/21/18 21:49; Admin Dose 10 UNITS; Start 08/18/18 at 21:00 Magnesium Hydroxide (Milk Of Mag) 30 ml DAILY PRN PO constipation; Start 08/18/18 at 18:00 Mirtazapine (Remeron) 30 mg HS PO Last administered on 08/21/18 21:22; Admin Dose 30 MG; Start 08/18/18 at 21:00 Pantoprazole (Protonix Tab) 40 mg AC BREAKFAST PO Last administered on 08/21/18 06:15; Admin Dose 40 MG; Start 08/19/18 at 07:00 Zinc Sulfate (Zinc Sulfate) 220 mg DAILY PO Last administered on 08/21/18 08:24; Admin Dose 220 MG; Start 08/19/18 at 09:00 IV Flush (NS 3 ml) 3 ml PER PROTOCOL IV ; Start 08/18/18 at 18:00 Ondansetron HCl (Zofran Inj) 4 mg Q6H PRN IV NAUSEA/VOMITING; Start 08/18/18 at 18:00 Acetaminophen (Tylenol Tab) 650 mg Q6H PRN PO .PAIN 1-3 OR TEMP; Start 08/18/18 at 18:00 Docusate Sodium (Colace) 100 mg Q12H PRN PO .CONSTIPATION; Start 08/18/18 at 18:00 Bisacodyl (Dulcolax) 5 mg DAILY PRN PO .CONSTIPATION; Start 08/18/18 at 18:00 Furosemide (Lasix) 20 mg BID DIURETICS IV Last administered on 08/22/18at 17:3 5; Admin Dose 20 MG; Start 08/18/18 at 18:00 Miscellaneous Information 1 ea NOTE XX ; Start 08/18/18 at 18:00 Glucose (Glutose) 15 gm Q15M PRN PO DECREASED GLUCOSE; Start 08/18/18 at 18:00 Glucose (Glutose) 22.5 gm Q15M PRN PO DECREASED GLUCOSE; Start 08/18/18 at 18:00 Dextrose (D50w Syringe) 25 ml Q15M PRN IV DECREASED GLUCOSE; Start 08/18/18 at 18:00 Dextrose (D50w Syringe) 50 ml Q15M PRN IV DECREASED GLUCOSE; Start 08/18/18 at 18:00 Glucagon (Glucagen) 1 mg Q15M PRN IM DECREASED GLUCOSE; Start 08/18/18 at 18:00 Glucose (Glutose) 15 gm Q15M PRN BUCCAL DECREASED GLUCOSE; Start 08/18/18 at 18:00 Multivitamins Therapeutic (Theragran) 1 tab DAILY PO Last administered on 08/21/18at 08:24; Admin Dose 1 TAB; Start 08/19/18 at 09:00 Atorvastatin Calcium (Lipitor) 10 mg DAILY@21 PO Last administered on 08/21/18at 21:23; Admin Dose 10 MG; Start 08/18/18 at 21:00 Insulin Aspart (Novolog Insulin Pen) NOVOLOG *MILD* ALGORITHM WITH MEALS BEDTIME SC Last administered on 08/21/18at 21:49; Admin Dose 2 UNIT; Start 08/18/18 at 18:00 Hydralazine HCl (Apresoline) 10 mg Q4H PRN IV SBP >170; Start 08/19/18 at 09:00 Dextrose/Sodium Chloride 1,000 ml @ 20 mls/hr Q24H IV Last administered on at 11:42; Admin Dose 20 MLS/HR; Start 08/21/18 at 10:30 Piperacillin Sod/ Tazobactam Sod 100 ml @ 200 mls/hr Q6 IVPB Last administered on 08/22/18at 17:35; Admin Dose 200 MLS/HR; Start 08/22/18 at 12:00 Albuterol/ Ipratropium (Duoneb) 3 ml Q6HWA RESP THERAPY HHN Last administered on 08/22/18at 14:35; Admin Dose 3 ML; Start 08/22/18 at 14:00 Albuterol/ Ipratropium (Duoneb) 3 ml Q2H RESP THERAPY PRN HHN shortness of breath; Start 08/22/18 at 10:30 Budesonide (Pulmicort (Neb)) 0.5 mg BID RESP THERAPY HHN ; Start 08/22/18 at 20:00 Vancomycin HCl (Vanco Iv Per Pharmacy) VANCOMYCIN PER PHARMACY PER PROTOCOL XX ; Start 08/22/18 at 11:30 Vancomycin/Sodium Chloride 250 ml @ 125 mls/hr Q24H IVPB ; Start 08/23/18 at 14:00 YAZMIN LEOS MD Aug 22, 2018 18:10
[2018-08-22] MEDS ORDERED: MAGNESIUM SULFATE 2 GM/50 ML 50 ML IVPB ONE (18:30)
[2018-08-22 20:38] VITALS: BP 114/56; PULSE 66; RESP 16
[2018-08-22] MEDS: BUDESONIDE (NEB) 0.5MG/2ML AMP HHN SCH (20:49)
[2018-08-22] MEDS: MIRTAZAPINE 15 MG TAB PO SCH (21:17)
[2018-08-22] MEDS: ATORVASTATIN 10 MG TAB PO SCH (21:17)
[2018-08-22] MEDS: ARIPIPRAZOLE 10 MG TAB PO SCH (21:19)
[2018-08-22] MEDS: INSULIN GLARGINE [LANTus] (100 UNITS/ML) SYG SC SCH (21:22)
[2018-08-22] MEDS: BALSAM PERU/CASTOR OIL 60 GM TUBE TOP SCH (21:23)
[2018-08-23 00:40] VITALS: BP 117/57; PULSE 68; RESP 18
[2018-08-23 04:22] VITALS: BP 132/60; PULSE 62; RESP 16
[2018-08-23] MEDS: FUROSEMIDE 20 MG INJ IV SCH (05:18)
[2018-08-23] MEDS: PIPER-TAZO 3.375 GM IV (PMX) 100 ML IVPB SCH ×2 (05:18→11:52)
[2018-08-23] MEDS: PANTOPRAZOLE (EC) 40 MG TAB PO SCH (06:13)
[2018-08-23] MEDS: BALSAM PERU/CASTOR OIL 60 GM TUBE TOP SCH (07:32)
[2018-08-23] MEDS: DEXTROSE 5%-0.45% NACL 1,000 ML IV SCH (07:36)
[2018-08-23] MEDS: ASCORBIC ACID 500 MG TAB PO SCH (07:37)
[2018-08-23] MEDS: MULTIVITAMINS THERAPEUTIC TAB PO SCH (07:37)
[2018-08-23] MEDS: ZINC SULFATE 220 MG CAP PO SCH (07:37)
[2018-08-23] MEDS: ASPIRIN (EC) 81 MG TAB PO SCH (07:37)
[2018-08-23] MEDS: CHOLECALCIFEROL 1,000 UNIT TAB PO SCH (07:37)
[2018-08-23] MEDS: CALCIUM/VITAMIN D (500/200) TAB PO SCH (07:37)
[2018-08-23] MEDS: INSULIN ASPART [NOVOLOG] 3 ML PEN SC SCH ×2 (07:46→11:56)
[2018-08-23 07:59] VITALS: BP 129/70; PULSE 62; RESP 18
--- NOTE | 2018-08-23 08:16 | CONS ---
Consult Date/Type/Reason Admit Date/Time Aug 18, 2018 at 18:25 Initial Consult Date 08/22/18 Type of Consultation: cv Requesting Provider: MARCELLA NIEVES Date/Time of Note DATE: 08/23/18 TIME: 08:13 Subjective Interventional cardiology follow-up progress note Subjective Case discussed with staff and telemetry was reviewed patient remains sinus rhythm Patient is a poor historian but denies any chest pain or pressure to me denies any PND orthopnea to me O: General: Early female in no acute distress HEENT: NC/AT. pupils are equal. round. NECK: no stridor. CV: RRR. systolic murmur; no gallop or rubs. PULM: no wheezing or rhonchi. GI: SOFT, NT, ND, no rebound or guarding Extremity: trace B/L LE edema. no clubbing. neuro: awake and alert, OX1. Psych: calm and pleasant rectal: deferred Derm: Skin lesion noted on the left forehead EKG was personally showed normal sinus rhythm with marked sinus arrhythmia Echocardiogram done August 19, [address] Pearl shows: Normal left ventricular systolic function. Normal left ventricular cavity size. Moderate asymmetric septal hypertrophy. Moderate left ventricular hypertrophy. Ejection fraction is visually estimated at 60 %. Tissue Doppler/Mitral Doppler indices are consistent with pseudonormalization with mildly elevated left atrial pressure (Stage II diastolic dysfunction). Normal right ventricular size. Normal right ventricular systolic function. The left atrium is normal in size. The right atrium is normal in size. Mild mitral valve regurgitation. Moderate aortic stenosis. Trace aortic valve regurgitation. The estimated Peak RVSP is 54 mmHg. There is mild tricuspid regurgitation. Pericardial effusion, likely small in size, difficult to fully confirm secondary to large left peural effusion. No echocardiographic evidence to suggest pericardial tamponade. Further imaging if clicinally warranted. Chest x-ray done August 18, 2018 was personally reviewed which shows: 1. Large left pleural effusion. 2. Nonspecific increased density in the remaining aerated portion of the upper left lung. This may be secondary to atelectasis versus infiltrate. 3. The right lung is clear. Chest x-ray August 22, 2018 shows: Cardiomegaly with calcified atherosclerosis in the aorta. Stable patchy infiltrates throughout the left lung with small potential left pleural effusion. Scattered atelectasis in the right lung. Hyperexpanded lungs with diffuse mild interstitial prominence in both lungs. Interstitial prominence could be chronic. Findings could reflect COPD. Objective Vitals Vital Signs Date Temp Pulse Resp B/P (MAP) Pulse Ox O2 O2 Flow FiO2 Time Delivery Rate 08/23/18 98.0 62 18 129/70 98 07:59 (89) 08/23/18 Nasal 04:22 Cannula 08/22/18 22 20:49 08/22/18 2.0 20:49 Intake and Output 08/22/18 08/22/18 08/23/18 1515:00 23:00 07:00 IntakeIntake Total 100 ml 690 ml 500 ml BalanceBalance 100 ml 690 ml 500 ml Results/Medications Result Diagram: 08/23/18 0530 08/23/18 0530 Results 24 hrs Laboratory Tests Test 08/22/18 08:15 08/22/18 09:01 08/22/18 12:30 08/22/18 17:32 Bedside Glucose 130 107 115 White Blood Count 8.9 Red Blood Count 3.67 L Hemoglobin 11.0 L Hematocrit 33.1 L Mean Corpuscular 90.2 Volume Mean Corpuscular 30.0 Hemoglobin Mean Corpuscular 33.2 Hemoglobin Concent Red Cell 13.2 Distribution Width Platelet Count 334 Mean Platelet Volume 10.4 Immature 0.300 Granulocytes % Neutrophils % 68.2 Lymphocytes % 20.4 Monocytes % 8.7 Eosinophils % 2.1 Basophils % 0.3 Nucleated Red Blood 0.0 Cells % Immature 0.030 Granulocytes # Neutrophils # 6.0 Lymphocytes # 1.8 Monocytes # 0.8 Eosinophils # 0.2 Basophils # 0.0 Nucleated Red Blood 0.0 Cells # Sodium Level 141 Potassium Level 3.4 L Chloride Level 99 Carbon Dioxide Level 33 H Anion Gap 9 Blood Urea Nitrogen 33 H Creatinine 0.94 Glucose Level 132 Calcium Level 9.1 Phosphorus Level 3.6 Magnesium Level 1.7 Albumin 3.1 L Test 08/22/18 21:16 08/23/18 01:56 08/23/18 05:30 08/23/18 07:35 Bedside Glucose 255 H 250 H 203 White Blood Count 8.4 Red Blood Count 3.87 L Hemoglobin 11.8 L Hematocrit 35.8 L Mean Corpuscular 92.5 Volume Mean Corpuscular 30.5 Hemoglobin Mean Corpuscular 33.0 Hemoglobin Concent Red Cell 13.2 Distribution Width Platelet Count 340 Mean Platelet Volume 10.4 Immature 0.500 H Granulocytes % Neutrophils % 64.4 Lymphocytes % 22.2 Monocytes % 10.3 Eosinophils % 2.0 Basophils % 0.6 Nucleated Red Blood 0.0 Cells % Immature 0.040 H Granulocytes # Neutrophils # 5.4 Lymphocytes # 1.9 Monocytes # 0.9 Eosinophils # 0.2 Basophils # 0.1 Nucleated Red Blood 0.0 Cells # Sodium Level 143 Potassium Level 3.5 Chloride Level 99 Carbon Dioxide Level 37 H Anion Gap 7 Blood Urea Nitrogen 34 H Creatinine 1.35 H Est Glomerular Filtrat Rate mL/min Glucose Level 214 Calcium Level 9.4 Phosphorus Level 4.2 Magnesium Level 2.4 Total Bilirubin 0.4 Direct Bilirubin 0.00 Indirect Bilirubin 0.4 Aspartate Amino 19 Transf (AST/SGOT) Alanine 14 Aminotransferase (AL T/SGPT) Alkaline Phosphatase 54 B-Type Natriuretic 434 Peptide Total Protein 7.6 Albumin 3.5 Globulin 4.10 H Albumin/Globulin 0.85 Ratio Home Meds Reported Medications Cholecalciferol* (Vitamin D3*) 1,000 Unit Tablet, 1000 UNIT PO BID, TAB 08/18/18 Calcium Carbonate/Vitamin D3 (OYSTER SHELL 500 MG + VIT D TB) 1 Each Tablet, 1 EACH PO DAILY, TAB 08/18/18 Magnesium Oxide* (Magnesium Oxide*) 400 Mg Tablet, 400 MG PO BID, TAB 08/18/18 Simvastatin* (Zocor*) 10 Mg Tablet, 10 MG PO QHS, #30 TAB 08/18/18 Mirtazapine* (Remeron*) 30 Mg Tablet, 30 MG PO HS, TAB 08/18/18 Lorazepam* (Ativan*) 0.5 Mg Tablet, 0.5 MG PO BID PRN for ANXIETY, #30 TAB 08/18/18 Aripiprazole* (Abilify*) 10 Mg Tablet, 10 MG PO QHS, #30 TAB 08/18/18 Zinc Sulfate* (Zinc Sulfate*) 220 Mg Tablet, 220 MG PO DAILY, TAB 08/18/18 Sennosides* (Senna Lax*) 8.6 Mg Tablet, 1 TAB PO DAILY, TAB 08/18/18 Amino Acids/Protein Hydrolys (PRO-STAT LIQUID) 30 Ml Liquid.pkt, 30 ML PO TID SUGAR FREE 08/18/18 Pantoprazole* (Pantoprazole*) 40 Mg Tablet.dr, 40 MG PO AC BREAKFAST, TAB 08/18/18 Multivitamin with Minerals (Multivitamins with Minerals) 1 Each Tablet, 1 EACH PO DAILY, TAB 08/18/18 Magnesium Hydroxide* (Milk Of Magnesia*) 400 Mg/5 Ml Oral.susp, 30 ML PO NEEDED, ML 08/18/18 Melatonin (Melatonin) 3 Mg Tablet.sa, 3 MG PO HS, TAB.SA 08/18/18 Insulin Glargine* (Lantus*) 100 Unit/Ml Soln, 10 UNIT SC QHS PRN for HOLD IF BS<100MG/DL, #1 VIAL 08/18/18 Sodium Phosphate,Candler-Dibasic (Enema Ready To Use) Unknown Strength Enema, 118 ML RC NEEDED, ENEMA 08/18/18 Bisacodyl (Dulcolax) 10 Mg Supp.rect, 10 MG RC NEEDED, SUPP.RECT 08/18/18 Carvedilol* (Coreg*) 6.25 Mg Tablet, 6.25 MG PO BID, #60 TAB HOLD FOR SBP<110 OR WI<60 08/18/18 Docusate Sodium* (Colace*) 100 Mg Capsule, 100 MG PO BID, #60 CAP 08/18/18 Fluticasone-Vilanterol (Breo Ellipta Inhaler) 100-25 Mcg/Actuation Aer.pow.ba, 1 PUFF INHALATION DAILY, #1 INHALER 08/18/18 Nut.tx.gluc Intol,Lf,Soy/Fiber (Boost Glucose Control Liquid) 237 Ml Liquid, PO QID 08/18/18 Aspirin* (Aspirin* EC) 81 Mg Tablet.dr, 81 MG PO DAILY, TAB 08/18/18 Ascorbic Acid (Vitamin C) 500 Mg Tab, 500 MG PO BID, TAB 08/18/18 Albuterol Sulfate* (Albuterol Sulfate* Neb) 0.083%-3 Ml Neb, 2.5 MG NEB Q6H PRN for WHEEZING AND SOB, #30 VIAL 08/18/18 Insulin Lispro (Humalog Kwikpen U-100) 100 Unit/1 Ml Insuln.pen, 0 SQ SLIDING SCALE, EA IF BS LESS THAN 70 CALL MD. IF BS 70-150=0 UNIT, 151-200=2 UNITS,201-250=4 UNITS, 251-300=6 UNITS, 301-350=8 UNITS,351-400=10 UNITS, IF BS>400=12 UNITS AND CALL MD. 08/18/18 Acetaminophen* (Acetaminophen*) 325 Mg Tablet, 650 MG PO Q6H PRN for MILD PAIN LEVEL 1-3, #30 TAB 08/18/18 Medications Current Medications Aripiprazole (Abilify) 10 mg QHS PO Last administered on 08/22/18 21:19; Admin Dose 10 MG; Start 08/18/18 at 21:00 Ascorbic Acid (Vitamin C) 500 mg BID PO Last administered on 08/22/18 21:17; Admin Dose 500 MG; Start 08/18/18 at 21:00 Aspirin (Halfprin) 81 mg DAILY PO Last administered on 08/21/18 08:24; Admin Dose 81 MG; Start 08/19/18 at 09:00 Calcium/Vitamin D (Oyster Shell/ Vit-D (500/200)) 1 tab DAILY PO Last administered on 08/21/18 08:24; Admin Dose 1 TAB; Start 08/19/18 at 09:00 Carvedilol (Coreg) 6.25 mg BID PO Last administered on 08/22/18 21:18; Admin Dose 6.25 MG; Start 08/18/18 at 21:00 Cholecalciferol (Vitamin D) 1,000 unit BID PO Last administered on 08/22/18 21:17; Admin Dose 1,000 UNIT; Start 08/18/18 at 21:00 Insulin Glargine (Lantus) 10 units QHS SC Last administered on 08/22/18 21:22; Admin Dose 10 UNITS; Start 08/18/18 at 21:00 Magnesium Hydroxide (Milk Of Mag) 30 ml DAILY PRN PO constipation; Start 08/18/18 at 18:00 Mirtazapine (Remeron) 30 mg HS PO Last administered on 08/22/18 21:17; Admin Dose 30 MG; Start 08/18/18 at 21:00 Pantoprazole (Protonix Tab) 40 mg AC BREAKFAST PO Last administered on 08/23/18 06:13; Admin Dose 40 MG; Start 08/19/18 at 07:00 Zinc Sulfate (Zinc Sulfate) 220 mg DAILY PO Last administered on 7/14/19at 08:24; Admin Dose 220 MG; Start 08/19/18 at 09:00 IV Flush (NS 3 ml) 3 ml PER PROTOCOL IV ; Start 08/18/18 at 18:00 Ondansetron HCl (Zofran Inj) 4 mg Q6H PRN IV NAUSEA/VOMITING; Start 08/18/18 at 18:00 Acetaminophen (Tylenol Tab) 650 mg Q6H PRN PO .PAIN 1-3 OR TEMP; Start 08/18/18 at 18:00 Docusate Sodium (Colace) 100 mg Q12H PRN PO .CONSTIPATION; Start 08/18/18 at 18:00 Bisacodyl (Dulcolax) 5 mg DAILY PRN PO .CONSTIPATION; Start 08/18/18 at 18:00 Furosemide (Lasix) 20 mg BID DIURETICS IV Last administered on 08/23/18at 05:18; Admin Dose 20 MG; Start 08/18/18 at 18:00 Miscellaneous Information 1 ea NOTE XX ; Start 08/18/18 at 18:00 Glucose (Glutose) 15 gm Q15M PRN PO DECREASED GLUCOSE; Start 08/18/18 at 18:00 Glucose (Glutose) 22.5 gm Q15M PRN PO DECREASED GLUCOSE; Start 08/18/18 at 18:00 Dextrose (D50w Syringe) 25 ml Q15M PRN IV DECREASED GLUCOSE; Start 08/18/18 at 18:00 Dextrose (D50w Syringe) 50 ml Q15M PRN IV DECREASED GLUCOSE; Start 08/18/18 at 18:00 Glucagon (Glucagen) 1 mg Q15M PRN IM DECREASED GLUCOSE; Start 08/18/18 at 18:00 Glucose (Glutose) 15 gm Q15M PRN BUCCAL DECREASED GLUCOSE; Start 08/18/18 at 18:00 Multivitamins Therapeutic (Theragran) 1 tab DAILY PO Last administered on 08/21/18at 08:24; Admin Dose 1 TAB; Start 08/19/18 at 09:00 Atorvastatin Calcium (Lipitor) 10 mg DAILY@21 PO Last administered on 08/22/18at 21:17; Admin Dose 10 MG; Start 08/18/18 at 21:00 Insulin Aspart (Novolog Insulin Pen) NOVOLOG *MILD* ALGORITHM WITH MEALS BEDTIME SC Last administered on 08/23/18at 07:46; Admin Dose 2 UNIT; Start 08/18/18 at 18:00 Hydralazine HCl (Apresoline) 10 mg Q4H PRN IV SBP >170; Start 08/19/18 at 09:00 Dextrose/Sodium Chloride 1,000 ml @ 20 mls/hr Q24H IV Last administered on 08/21/18at 11:42; Admin Dose 20 MLS/HR; Start 08/21/18 at 10:30 Piperacillin Sod/ Tazobactam Sod 100 ml @ 200 mls/hr Q6 IVPB Last administered on 08/23/18at 05:18; Admin Dose 200 MLS/HR; Start 08/22/18 at 12:00 Albuterol/ Ipratropium (Duoneb) 3 ml Q6HWA RESP THERAPY HHN Last administered on 08/22/18at 20:49; Admin Dose 3 ML; Start 08/22/18 at 14:00 Albuterol/ Ipratropium (Duoneb) 3 ml Q2H RESP THERAPY PRN HHN shortness of breath; Start 08/22/18 at 10:30 Budesonide (Pulmicort (Neb)) 0.5 mg BID RESP THERAPY HHN Last administered on 08/22/18at 20:49; Admin Dose 0.5 MG; Start 08/22/18 at 20:00 Vancomycin HCl (Vanco Iv Per Pharmacy) VANCOMYCIN PER PHARMACY PER PROTOCOL XX ; Start 08/22/18 at 11:30 Vancomycin/Sodium Chloride 250 ml @ 125 mls/hr Q24H IVPB ; Start 08/23/18 at 14:00 Assessment/Plan Hospital Course (Demo Recall) large Left pleural effusion s/p thoracentesis: doubt related to congestive heart failure. Probably underlying pulmonary disease possibly cancer although so far work-up has been negative for cancer Small pericardial effusion appears to be related to above Moderate aortic stenosis Dementia memory impairment Possible pneumonia on antibiotic now Acute kidney disease Recommendations: Will hold the diuretics for now given her acute renal failure.. We will check the renal function test and BNP level tomorrow Follow-up with pulmonary recommendation. Consider CT scan of the chest especially after thoracentesis is done. Respiratory care as per pulmonary Herrera transfer is being entertained Replace electrolyte as needed Thank you for his referral. We will continue to follow along with you YAZMIN LEOS MD [facility] YAZMIN LEOS MD Aug 23, 2018 08:16
[2018-08-23] MEDS: BUDESONIDE (NEB) 0.5MG/2ML AMP HHN SCH (08:39)
[2018-08-23] MEDS: ALBUTEROL/IPRATROPIUM (NEB) 3 ML AMP HHN SCH (08:39)
--- NOTE | 2018-08-23 10:10 | CONS ---
Consultation Date/Type/Reason Admit Date/Time Aug 18, 2018 at 18:25 Initial Consult Date Type of Consult Pulmonary Patient's condition is a stable. Remains awake and alert. Denies any shortness of breath. General exam; elderly woman, currently in no distress. H EENT exam; supple neck, no lymphadenopathy. Positive JVD. Patient has a multiple carious teeth. No neck masses. Pupils are small bilaterally. Chest exam; diminished breath sounds bilaterally. S1-S2 audible, soft grade 2/6 systolic ejection murmur. Regular rhythm. Abdomen exam; soft, nontender. Nondistended. No organomegaly. Bowel sounds are audible. Extremity exam; no peripheral edema. [employer]IP[employer] exam; no focal deficit. Assessment and recommendations; 1. Patient admitted with left-sided pneumonia with pleural effusion status post thoracentesis. 2. CHF. 3. Diabetes. 4. Hypertension. 5. Anemia. 6. History of bipolar disorder. 7. Diastolic dysfunction. Continue current supportive care. Obtain follow-up chest x-ray 24 hours. Requesting Provider: MARCELLA NIEVES Date/Time of Note DATE: 08/23/18 TIME: 10:08 24 HR Interval Summary Free Text/Dictation Patient's condition is stable. Denies any shortness of breath or chest pain. Any coughing or wheezing. General exam; elderly woman, awake and alert. Currently in no distress. H EENT exam; supple neck, no JVD. No lymphadenopathy. Midline trachea. No thyromegaly. Patient has multiple carious teeth. Chest exam; diminished but clear breath sounds. S1-S2 audible, no murmurs. Regular rhythm. Abdomen exam; soft, no organomegaly. Nontender. Bowel sounds are audible. Extremity exam; no peripheral edema clubbing. [employer] exam; no focal deficit. Chest x-ray was reviewed from yesterday which is showing persistent left sided infiltrative changes. Assessment and recommendations; 1. patient admitted with left-sided pneumonia status post thoracentesis with persistent infiltrative changes involving left lung. Currently on appropriate antimicrobial regimen. 2. Acute renal injury. 3. History of diabetes and hypertension. 4. Diastolic dysfunction. 5. History of bipolar disorder. Continue current supportive care. Monitor renal function. Antibiotics per ID recommendations. Exam/Review of Systems Exam Vitals Vital Signs Date Temp Pulse Resp B/P (MAP) Pulse Ox O2 O2 Flow FiO2 Time Delivery Rate 08/23/18 59 18 94 21 08:40 08/23/18 98.0 129/70 07:59 (89) 08/23/18 Nasal 04:22 Cannula 08/22/18 2.0 20:49 Intake and Output 08/22/18 08/22/18 08/23/18 1515:00 23:00 07:00 IntakeIntake Total 100 ml 690 ml 500 ml BalanceBalance 100 ml 690 ml 500 ml Results Result Diagram: 08/23/1852908/23/18529 Results 24hrs Laboratory Tests Test 08/22/18 12:30 08/22/18 17:32 08/22/18 21:16 08/23/18 01:56 Bedside Glucose 107 115 255 H 250 H Test 08/23/18 05:30 08/23/18 07:35 White Blood Count 8.4 Red Blood Count 3.87 L Hemoglobin 11.8 L Hematocrit 35.8 L Mean Corpuscular 92.5 Volume Mean Corpuscular 30.5 Hemoglobin Mean Corpuscular 33.0 Hemoglobin Concent Red Cell 13.2 Distribution Width Platelet Count 340 Mean Platelet Volume 10.4 Immature 0.500 H Granulocytes % Neutrophils % 64.4 Lymphocytes % 22.2 Monocytes % 10.3 Eosinophils % 2.0 Basophils % 0.6 Nucleated Red Blood 0.0 Cells % Immature 0.040 H Granulocytes # Neutrophils # 5.4 Lymphocytes # 1.9 Monocytes # 0.9 Eosinophils # 0.2 Basophils # 0.1 Nucleated Red Blood 0.0 Cells # Sodium Level 143 Potassium Level 3.5 Chloride Level 99 Carbon Dioxide Level 37 H Anion Gap 7 Blood Urea Nitrogen 34 H Creatinine 1.35 H Est Glomerular Filtrat Rate mL/min Glucose Level 214 Calcium Level 9.4 Phosphorus Level 4.2 Magnesium Level 2.4 Total Bilirubin 0.4 Direct Bilirubin 0.00 Indirect Bilirubin 0.4 Aspartate Amino 19 Transf (AST/SGOT) Alanine 14 Aminotransferase (AL T/SGPT) Alkaline Phosphatase 54 B-Type Natriuretic 434 Peptide Total Protein 7.6 Albumin 3.5 Globulin 4.10 H Albumin/Globulin 0.85 Ratio Bedside Glucose 203 Medications Medication Current Medications Aripiprazole (Abilify) 10 mg QHS PO Last administered on 08/22/18at 21:19; Admin Dose 10 MG; Start 08/18/18 at 21:00 Ascorbic Acid (Vitamin C) 500 mg BID PO Last administered on 08/22/18 21:17; Admin Dose 500 MG; Start 08/18/18 at 21:00 Aspirin (Halfprin) 81 mg DAILY PO Last administered on 08/21/18 08:24; Admin Dose 81 MG; Start 08/19/18 at 09:00 Calcium/Vitamin D (Oyster Shell/ Vit-D (500/200)) 1 tab DAILY PO Last administered on 08/21/18 08:24; Admin Dose 1 TAB; Start 08/19/18 at 09:00 Carvedilol (Coreg) 6.25 mg BID PO Last administered on 08/22/18 21:18; Admin Dose 6.25 MG; Start 08/18/18 at 21:00 Cholecalciferol (Vitamin D) 1,000 unit BID PO Last administered on 08/22/18 2 1:17; Admin Dose 1,000 UNIT; Start 08/18/18 at 21:00 Insulin Glargine (Lantus) 10 units QHS SC Last administered on 08/22/18 21:22; Admin Dose 10 UNITS; Start 08/18/18 at 21:00 Magnesium Hydroxide (Milk Of Mag) 30 ml DAILY PRN PO constipation; Start 08/18/18 at 18:00 Mirtazapine (Remeron) 30 mg HS PO Last administered on 08/22/18 21:17; Admin Dose 30 MG; Start 08/18/18 at 21:00 Pantoprazole (Protonix Tab) 40 mg AC BREAKFAST PO Last administered on 08/23/18 06:13; Admin Dose 40 MG; Start 08/19/18 at 07:00 Zinc Sulfate (Zinc Sulfate) 220 mg DAILY PO Last administered on 08/21/18 08:24; Admin Dose 220 MG; Start 08/19/18 at 09:00 IV Flush (NS 3 ml) 3 ml PER PROTOCOL IV ; Start 08/18/18 at 18:00 Ondansetron HCl (Zofran Inj) 4 mg Q6H PRN IV NAUSEA/VOMITING; Start 08/18/18 at 18:00 Acetaminophen (Tylenol Tab) 650 mg Q6H PRN PO .PAIN 1-3 OR TEMP; Start 08/18/18 at 18:00 Docusate Sodium (Colace) 100 mg Q12H PRN PO .CONSTIPATION; Start 08/18/18 at 18:00 Bisacodyl (Dulcolax) 5 mg DAILY PRN PO .CONSTIPATION; Start 08/18/18 at 18:00 Furosemide (Lasix) 20 mg BID DIURETICS IV Last administered on 08/23/18at 05:18; Admin Dose 20 MG; Start 08/18/18 at 18:00; Status Hold Miscellaneous Information 1 ea NOTE XX ; Start 08/18/18 at 18:00 Glucose (Glutose) 15 gm Q15M PRN PO DECREASED GLUCOSE; Start 08/18/18 at 18:00 Glucose (Glutose) 22.5 gm Q15M PRN PO DECREASED GLUCOSE; Start 08/18/18 at 18:00 Dextrose (D50w Syringe) 25 ml Q15M PRN IV DECREASED GLUCOSE; Start 08/18/18 at 18:00 Dextrose (D50w Syringe) 50 ml Q15M PRN IV DECREASED GLUCOSE; Start 08/18/18 at 18:00 Glucagon (Glucagen) 1 mg Q15M PRN IM DECREASED GLUCOSE; Start 08/18/18 at 18:00 Glucose (Glutose) 15 gm Q15M PRN BUCCAL DECREASED GLUCOSE; Start 08/18/18 at 18:00 Multivitamins Therapeutic (Theragran) 1 tab DAILY PO Last administered on 08/21/18at 08:24; Admin Dose 1 TAB; Start 08/19/18 at 09:00 Atorvastatin Calcium (Lipitor) 10 mg DAILY@21 PO Last administered on 08/22/18at 21:17; Admin Dose 10 MG; Start 08/18/18 at 21:00 Insulin Aspart (Novolog Insulin Pen) NOVOLOG *MILD* ALGORITHM WITH MEALS BEDTIME SC Last administered on 08/23/18at 07:46; Admin Dose 2 UNIT; Start 08/18/18 at 18:00 Hydralazine HCl (Apresoline) 10 mg Q4H PRN IV SBP >170; Start 08/19/18 at 09:00 Dextrose/Sodium Chloride 1,000 ml @ 20 mls/hr Q24H IV Last administered on 08/21/18at 11:42; Admin Dose 20 MLS/HR; Start 08/21/18 at 10:30 Piperacillin Sod/ Tazobactam Sod 100 ml @ 200 mls/hr Q6 IVPB Last administered on 08/23/18at 05:18; Admin Dose 200 MLS/HR; Start 08/22/18 at 12:00 Albuterol/ Ipratropium (Duoneb) 3 ml Q6HWA RESP THERAPY HHN Last administered on 08/23/18at 08:39; Admin Dose 3 ML; Start 08/22/18 at 14:00 Albuterol/ Ipratropium (Duoneb) 3 ml Q2H RESP THERAPY PRN HHN shortness of breath; Start 08/22/18 at 10:30 Budesonide (Pulmicort (Neb)) 0.5 mg BID RESP THERAPY HHN Last administered on 08/23/18at 08:39; Admin Dose 0.5 MG; Start 08/22/18 at 20:00 Vancomycin HCl (Vanco Iv Per Pharmacy) VANCOMYCIN PER PHARMACY PER PROTOCOL XX ; Start 08/22/18 at 11:30 Vancomycin/Sodium Chloride 250 ml @ 125 mls/hr Q24H IVPB ; Start 08/23/18 at 14:00 GIDEON ALEXANDRA Aug 23, 2018 10:10
--- NOTE | 2018-08-23 10:45 | DS ---
Date/Time of Note Date/Time of Note DATE: 08/23/18 TIME: 10:45 Discharge Summary Admission/Discharge Info Admit Date/Time Aug 18, 2018 at 18:25 Discharge Date/Time Patient Condition: Stable Hospital Course Patient is a female with a past medical history significant for Alzheimer's dementia, recurrent left-sided pleural effusion drained multiple times, CHF, diabetes mellitus, left forehead mass, COPD, hypertension, schizophrenia who [facility] with original complaint of chest pain and shortness of breath. Patient had ACS ruled out for the chest pain and patient's respiratory distress was caused by a recurrent large left-sided pleural effusion which patient received a thoracentesis and had 900 cc removed on August 19. Of note patient was recently admitted to [facility] and also had a left pleural effusion which was drained. Also of note history and physical from this admission dates that patient had right pleural effusion that was drained however after records were obtained from [facility] it turns out it was actually a left pleural effusion. Of note patient does have extensive work-up that needs to be continued including etiology of recurrent pleural effusion which I recommend continue to follow-up from cardiology and pulmonology. Patient does have a questionable pericardial effusion however cardiology believes that this is secondary to the pleural effusion. As of right now there is no concrete etiology for pleural effusion however malignancy should be a consideration. Patient will need continued work-up and follow-up of the recurrent pleural effu tamanna. Patient also likely has a pneumonia which infectious disease was following and placed patient on Zosyn and vancomycin. I recommend continued follow-up from infectious disease as well. 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 Of note to elucidate a better p icture regarding the pneumonia and pericardial effusion, cardiology did recommend that the next time that patient is tapped that a CT of the chest be done immediately after to ascertain the true magnitude of the pericardial effusion. Patient is to continue all other medications however does have some significant appetite issues as patient is less than 50% of her meal. At this time I am continuing mild IV fluids. Diuretics of Lasix had to be held today as patient's creatinine did increase and I recommend nephrology to be consulted at [facility]. Consultations recommended for continue to follow 1. Pulmonology 2. Cardiology 3. Oncology 4. Nephrology 5. Infectious disease Discharge diagnosis Large left-sided pleural effusion, status post thoracentesis, recurrent Possible malignancy Acute on chronic congestive heart failure, resolving Questionable pneumonia Acute chest pain, resolved Diabetes mellitus Left forehead mass, questionable malignancy, recommend oncology consultation Alzheimer's dementia COPD Hypertension Schizophrenia, questionable Appetite diminished Home Meds Reported Medications Cholecalciferol* (Vitamin D3*) 1,000 Unit Tablet, 1000 UNIT PO BID, TAB 08/18/18 Calcium Carbonate/Vitamin D3 (OYSTER SHELL 500 MG + VIT D TB) 1 Each Tablet, 1 EACH PO DAILY, TAB 08/18/18 Magnesium Oxide* (Magnesium Oxide*) 400 Mg Tablet, 400 MG PO BID, TAB 08/18/18 Simvastatin* (Zocor*) 10 Mg Tablet, 10 MG PO QHS, #30 TAB 08/18/18 Mirtazapine* (Remeron*) 30 Mg Tablet, 30 MG PO HS, TAB 08/18/18 Lorazepam* (Ativan*) 0.5 Mg Tablet, 0.5 MG PO BID PRN for ANXIETY, #30 TAB 08/18/18 Aripiprazole* (Abilify*) 10 Mg Tablet, 10 MG PO QHS, #30 TAB 08/18/18 Zinc Sulfate* (Zinc Sulfate*) 220 Mg Tablet, 220 MG PO DAILY, TAB 08/18/18 Sennosides* (Senna Lax*) 8.6 Mg Tablet, 1 TAB PO DAILY, TAB 08/18/18 Amino Acids/Protein Hydrolys (PRO-STAT LIQUID) 30 Ml Liquid.pkt, 30 ML PO TID SUGAR FREE 08/18/18 Pantoprazole* (Pantoprazole*) 40 Mg Tablet.dr, 40 MG PO AC BREAKFAST, TAB 08/18/18 Multivitamin with Minerals (Multivitamins with Minerals) 1 Each Tablet, 1 EACH PO DAILY, TAB 08/18/18 Magnesium Hydroxide* (Milk Of Magnesia*) 400 Mg/5 Ml Oral.susp, 30 ML PO NEEDED, ML 08/18/18 Melatonin (Melatonin) 3 Mg Tablet.sa, 3 MG PO HS, TAB.SA 08/18/18 Insulin Glargine* (Lantus*) 100 Unit/Ml Soln, 10 UNIT SC QHS PRN for HOLD IF BS<100MG/DL, #1 VIAL 08/18/18 Sodium Phosphate,[place]-Dibasic (Enema Ready To Use) Unknown Strength Enema, 118 ML RC NEEDED, ENEMA 08/18/18 Bisacodyl (Dulcolax) 10 Mg Supp.rect, 10 MG RC NEEDED, SUPP.RECT 08/18/18 Carvedilol* (Coreg*) 6.25 Mg Tablet, 6.25 MG PO BID, #60 TAB HOLD FOR SBP<110 OR DC<60 08/18/18 Docusate Sodium* (Colace*) 100 Mg Capsule, 100 MG PO BID, #60 CAP 08/18/18 Fluticasone-Vilanterol (Breo Ellipta Inhaler) 100-25 Mcg/Actuation Aer.pow.ba, 1 PUFF INHALATION DAILY, #1 INHALER 08/18/18 Nut.tx.gluc Intol,Lf,Soy/Fiber (Boost Glucose Control Liquid) 237 Ml Liquid, PO QID 08/18/18 Aspirin* (Aspirin* EC) 81 Mg Tablet.dr, 81 MG PO DAILY, TAB 08/18/18 Ascorbic Acid (Vitamin C) 500 Mg Tab, 500 MG PO BID, TAB 08/18/18 Albuterol Sulfate* (Albuterol Sulfate* Neb) 0.083%-3 Ml Neb, 2.5 MG NEB Q6H PRN for WHEEZING AND SOB, #30 VIAL 08/18/18 Insulin Lispro (Humalog Kwikpen U-100) 100 Unit/1 Ml Insuln.pen, 0 SQ SLIDING SCALE, EA IF BS LESS THAN 70 CALL MD. IF BS 70-150=0 UNIT, 151-200=2 UNITS,201-250=4 UNITS, 251-300=6 UNITS, 301-350=8 UNITS,351-400=10 UNITS, IF BS>400=12 UNITS AND CALL MD. 08/18/18 Acetaminophen* (Acetaminophen*) 325 Mg Tablet, 650 MG PO Q6H PRN for MILD PAIN LEVEL 1-3, #30 TAB 08/18/18 Primary Care Provider Not On Staff Doctor Pending Labs Laboratory Tests Test 08/22/18 12:30 08/22/18 17:32 08/22/18 21:16 08/23/18 01:56 Bedside 107 115 255 250 Glucose mg/dL (70-220) mg/dL (70-220) mg/dL (70-220) mg/dL (70-220) Test 08/23/18 05:30 08/23/18 07:35 White Blood 8.4 Count 10^3/ul (4.8-10 .8) Red Blood 3.87 Count 10^6/ul (4.20-5 .40) Hemoglobin 11.8 g/dl (12.0-16.0 ) Hematocrit 35.8 % (37.0-47.0) Mean 92.5 Corpuscular fl (82.0-101.0) Volume Mean 30.5 Corpuscular pg (29.0-33.0) Hemoglobin Mean 33.0 Corpuscular g/dl (32.0-37.0 Hemoglobin Conc ) ent Red Cell 13.2 Distribution % (11.5-14.5) Width Platelet Count 340 10^3/UL (140-41 5) Mean Platelet 10.4 Volume fl (7.4-10.4) Immature 0.500 Granulocytes % % (0.001-0.429) Neutrophils % 64.4 % (39.0-77.0) Lymphocytes % 22.2 % (15.0-51.0) Monocytes % 10.3 % (0.0-11.0) Eosinophils % 2.0 % (0.0-7.0) Basophils % 0.6 % (0.0-2.0) Nucleated Red 0.0 Blood Cells % /100WBC (0.0-0. 0) Immature 0.040 Granulocytes # 10^3/ul (0.0-0. 031) Neutrophils # 5.4 10^3/ul (1.6-7. 5) Lymphocytes # 1.9 10^3/ul (0.8-2. 9) Monocytes # 0.9 10^3/ul (0.3-0. 9) Eosinophils # 0.2 10^3/ul (0.0-0. 5) Basophils # 0.1 10^3/ul (0.0-0. 1) Nucleated Red 0.0 Blood Cells # 10^3/ul (0.0-0. 0) Sodium Level 143 mmol/L (135-144 ) Potassium 3.5 Level mmol/L (3.5-5.1 ) Chloride Level 99 mmol/L (97-110) Carbon Dioxide 37 Level mmol/L (21-31) Anion Gap 7 (5-13) Blood Urea 34 mg/dl (7-20) Nitrogen Creatinine 1.35 mg/dl (0.44-1.0 0) Est Glomerular mL/min (>60) Filtrat Rate mL/min Glucose Level 214 mg/dl (70-220) Calcium Level 9.4 mg/dl (8.4-10.2 ) Phosphorus 4.2 Level mg/dl (2.5-4.9) Magnesium 2.4 Level mg/dl (1.7-2.5) Total 0.4 Bilirubin mg/dl (0.2-1.3) Direct 0.00 Bilirubin mg/dl (0.00-0.2 0) Indirect 0.4 Bilirubin mg/dl (0-1.1) Aspartate Amino 19 IU/L (15-46) Transf (AST/SGO T) Alanine 14 IU/L (13-69) Aminotransferas e (ALT/SGPT) Alkaline 54 Phosphatase IU/L (42-121) B-Type 434 Natriuretic PG/ML (0-450) Peptide Total Protein 7.6 g/dl (6.1-8.1) Albumin 3.5 g/dl (3.3-4.9) Globulin 4.10 g/dl (1.3-3.2) Albumin/Globuli 0.85 n Ratio Bedside 203 Glucose mg/dL (70-220) MARCELLA NIEVES Aug 23, 2018 10:45
[2018-08-23 12:42] VITALS: BP 127/68; PULSE 70; RESP 18
[2018-08-23] MEDS ORDERED: VANCOMYCIN 750 MG (PMX) 250 ML IVPB SCH (14:00)
--- NOTE | 2018-08-23 14:06 | CONS ---
Assessment/Plan Assessment/Plan Hospital Course (Demo Recall) Patient is lethargic arousable in no distress no fevers overnight WBC 8.4 platelets 340 neutrophils 64.4 BUN 34 creatinine 1.35 Chest x-ray this morning revealed left pulmonary infiltrates with small left pleural effusion slightly improved Antimicrobials: Vancomycin Zosyn Allergy: Levaquin Physical examination: This is a well-developed chronically ill-appearing elderly woman who is in no distress head atraumatic normocephalic neck is supple chest rise symmetrical breath sounds diminished bases. Heart: S1-S2. Abdomen soft bowel sounds present. Extremities without cyanosis. Assessment: 1. Left-sided pneumonia with pleural effusion, status post thoracentesis 2. Diabetes 3. Hypertension 4. History of bipolar disorder 5. Status post CHF exacerbation 6. Left sided mass on forehead Plan: Patient is clinically stable, continue present care, continue on current antibiotics to complete 7 to 10 days Consultation Date/Type/Reason Admit Date/Time Aug 18, 2018 at 18:25 Initial Consult Date 08/22/18 Type of Consult id Requesting Provider: MARCELLA NIEVES Date/Time of Note DATE: 08/23/18 TIME: 14:05 Exam/Review of Systems Exam Vitals Vital Signs Date Temp Pulse Resp B/P (MAP) Pulse Ox O2 O2 Flow FiO2 Time Delivery Rate 08/23/18 98.0 70 18 127/68 98 12:42 (87) 08/23/18 21 08:40 08/23/18 Nasal 04:22 Cannula 08/22/18 2.0 20:49 Intake and Output 08/22/18 08/22/18 08/23/18 1515:00 23:00 07:00 IntakeIntake Total 100 ml 690 ml 500 ml BalanceBalance 100 ml 690 ml 500 ml Results Result Diagram: 08/23/18 0530 08/23/18 0530 Results 24hrs Laboratory Tests Test 08/22/18 17:32 08/22/18 21:16 08/23/18 01:56 08/23/18 05:30 Bedside Glucose 115 255 H 250 H White Blood Count 8.4 Red Blood Count 3.87 L Hemoglobin 11.8 L Hematocrit 35.8 L Mean Corpuscular 92.5 Volume Mean Corpuscular 30.5 Hemoglobin Mean Corpuscular 33.0 Hemoglobin Concent Red Cell 13.2 Distribution Width Platelet Count 340 Mean Platelet Volume 10.4 Immature 0.500 H Granulocytes % Neutrophils % 64.4 Lymphocytes % 22.2 Monocytes % 10.3 Eosinophils % 2.0 Basophils % 0.6 Nucleated Red Blood 0.0 Cells % Immature 0.040 H Granulocytes # Neutrophils # 5.4 Lymphocytes # 1.9 Monocytes # 0.9 Eosinophils # 0.2 Basophils # 0.1 Nucleated Red Blood 0.0 Cells # Sodium Level 143 Potassium Level 3.5 Chloride Level 99 Carbon Dioxide Level 37 H Anion Gap 7 Blood Urea Nitrogen 34 H Creatinine 1.35 H Est Glomerular Filtrat Rate mL/min Glucose Level 214 Calcium Level 9.4 Phosphorus Level 4.2 Magnesium Level 2.4 Total Bilirubin 0.4 Direct Bilirubin 0.00 Indirect Bilirubin 0.4 Aspartate Amino 19 Transf (AST/SGOT) Alanine 14 Aminotransferase (AL T/SGPT) Alkaline Phosphatase 54 B-Type Natriuretic 434 Peptide Total Protein 7.6 Albumin 3.5 Globulin 4.10 H Albumin/Globulin 0.85 Ratio Test 08/23/18 07:35 08/23/18 11:51 Bedside Glucose 203 185 Medications Medication Current Medications Aripiprazole (Abilify) 10 mg QHS PO Last administered on 08/22/18 21:19; Admin Dose 10 MG; Start 08/18/18 at 21:00 Ascorbic Acid (Vitamin C) 500 mg BID PO Last administered on 08/22/18 21:17; Admin Dose 500 MG; Start 08/18/18 at 21:00 Aspirin (Halfprin) 81 mg DAILY PO Last administered on 08/21/18 08:24; Admin Dose 81 MG; Start 08/19/18 at 09:00 Calcium/Vitamin D (Oyster Shell/ Vit-D (500/200)) 1 tab DAILY PO Last admi nistered on 08/21/18 08:24; Admin Dose 1 TAB; Start 08/19/18 at 09:00 Carvedilol (Coreg) 6.25 mg BID PO Last administered on 08/22/18 21:18; Admin Dose 6.25 MG; Start 08/18/18 at 21:00 Cholecalciferol (Vitamin D) 1,000 unit BID PO Last administered on 08/22/18 21:17; Admin Dose 1,000 UNIT; Start 08/18/18 at 21:00 Insulin Glargine (Lantus) 10 units QHS SC Last administered on 08/22/18at 21:22; Admin Dose 10 UNITS; Start 08/18/18 at 21:00 Magnesium Hydroxide (Milk Of Mag) 30 ml DAILY PRN PO constipation; Start 08/18/18 at 18:00 Mirtazapine (Remeron) 30 mg HS PO Last administered on 08/22/18at 21:17; Admin Dose 30 MG; Start 08/18/18 at 21:00 Pantoprazole (Protonix Tab) 40 mg AC BREAKFAST PO Last administered on 08/23/18at 06:13; Admin Dose 40 MG; Start 08/19/18 at 07:00 Zinc Sulfate (Zinc Sulfate) 220 mg DAILY PO Last administered on 08/21/18at 08:24; Admin Dose 220 MG; Start 08/19/18 at 09:00 IV Flush (NS 3 ml) 3 ml PER PROTOCOL IV ; Start 08/18/18 at 18:00 Ondansetron HCl (Zofran Inj) 4 mg Q6H PRN IV NAUSEA/VOMITING; Start 08/18/18 at 18:00 Acetaminophen (Tylenol Tab) 650 mg Q6H PRN PO .PAIN 1-3 OR TEMP; Start 08/18/18 at 18:00 Docusate Sodium (Colace) 100 mg Q12H PRN PO .CONSTIPATION; Start 08/18/18 at 18:00 Bisacodyl (Dulcolax) 5 mg DAILY PRN PO .CONSTIPATION; Start 08/18/18 at 18:00 Furosemide (Lasix) 20 mg BID DIURETICS IV Last administered on 08/23/18at 05:18; Admin Dose 20 MG; Start 08/18/18 at 18:00; Status Hold Miscellaneous Information 1 ea NOTE XX ; Start 08/18/18 at 18:00 Glucose (Glutose) 15 gm Q15M PRN PO DECREASED GLUCOSE; Start 08/18/18 at 18:00 Glucose (Glutose) 22.5 gm Q15M PRN PO DECREASED GLUCOSE; Start 08/18/18 at 18:00 Dextrose (D50w Syringe) 25 ml Q15M PRN IV DECREASED GLUCOSE; Start 08/18/18 at 18:00 Dextrose (D50w Syringe) 50 ml Q15M PRN IV DECREASED GLUCOSE; Start 08/18/18 at 18:00 Glucagon (Glucagen) 1 mg Q15M PRN IM DECREASED GLUCOSE; Start 08/18/18 at 18:00 Glucose (Glutose) 15 gm Q15M PRN BUCCAL DECREASED GLUCOSE; Start 08/18/18 at 18:00 Multivitamins Therapeutic (Theragran) 1 tab DAILY PO Last administered on at 08:24; Admin Dose 1 TAB; Start 08/19/18 at 09:00 Atorvastatin Calcium (Lipitor) 10 mg DAILY@21 PO Last administered on 08/22/18at 21:17; Admin Dose 10 MG; Start 08/18/18 at 21:00 Insulin Aspart (Novolog Insulin Pen) NOVOLOG *MILD* ALGORITHM WITH MEALS BEDTIME SC Last administered on 08/23/18 11:56; Admin Dose 2 UNIT; Start 08/18/18 at 18:00 Hydralazine HCl (Apresoline) 10 mg Q4H PRN IV SBP >170; Start 08/19/18 at 09:00 Dextrose/Sodium Chloride 1,000 ml @ 20 mls/hr Q24H IV Last administered on 08/21/18at 11:42; Admin Dose 20 MLS/HR; Start 08/21/18 at 10:30 Piperacillin Sod/ Tazobactam Sod 100 ml @ 200 mls/hr Q6 IVPB Last administered on 08/23/18at 11:52; Admin Dose 200 MLS/HR; Start 08/22/18 at 12:00 Albuterol/ Ipratropium (Duoneb) 3 ml Q6HWA RESP THERAPY HHN Last administered on 08/23/18at 08:39; Admin Dose 3 ML; Start 08/22/18 at 14:00 Albuterol/ Ipratropium (Duoneb) 3 ml Q2H RESP THERAPY PRN HHN shortness of breath; Start 08/22/18 at 10:30 Budesonide (Pulmicort (Neb)) 0.5 mg BID RESP THERAPY HHN Last administered on 08/23/18at 08:39; Admin Dose 0.5 MG; Start 08/22/18 at 20:00 Vancomycin HCl (Vanco Iv Per Pharmacy) VANCOMYCIN PER PHARMACY PER PROTOCOL XX ; Start 08/22/18 at 11:30 Vancomycin/Sodium Chloride 250 ml @ 125 mls/hr Q24H IVPB ; Start 08/23/18 at 14:00 MACEY ZAMORANO NP Aug 23, 2018 14:06
== END 2018-08-23 14:10 | DRG 291 ==
LOC: E/R 15:46 → 6WM 18:25
PROVIDERS: ADMIT Internal Medicine; ATTEND Internal Medicine
PROC: 0W9B3ZZ Drainage of Left Pleural Cavity, Percutaneous Approach (ICD-10-PCS; principal; 2018-08-19)
DX: I11.0 Hypertensive heart disease with heart failure (principal); J18.9 Pneumonia, unspecified organism; J90 Pleural effusion, not elsewhere classified; R07.9 Chest pain, unspecified; G30.9 Alzheimer's disease, unspecified; F02.80 Dementia in other diseases classified elsewhere, unspecified severity, without behavioral disturbance, psychotic disturbance, mood disturbance, and anxiety; J44.9 Chronic obstructive pulmonary disease, unspecified; F20.9 Schizophrenia, unspecified; R22.0 Localized swelling, mass and lump, head; R09.02 Hypoxemia; Z87.891 Personal history of nicotine dependence; I95.9 Hypotension, unspecified; I50.23 Acute on chronic systolic (congestive) heart failure; E11.9 Type 2 diabetes mellitus without complications
CPT/HCPCS: 32555; 71045; 80048; 80053; 80069; 82550; 82553; 82945; 82962; 83036; 83615; 83735; 83880; 84100; 84157; 84484; 85025; 85610; 85730; 87070; 87102; 87116; 89051; 92610; 93005; 93306; 94640; 94664; 96365; 96366; 96375; 97116; 97161; 97167; 97530; J0400; J0692; J1815; J1940; J2543; J3370; J3475; J7042